=== PATIENT | male | born 1940 | race African-American/Black ===

== ENCOUNTER 2017-04-26 18:02 | Observation (INO) ==
--- NOTE | 2017-04-26 18:54 | Diag Imaging Result Doc PS360 ---
CHEST-2 VIEWS - 04/26/2017 INDICATION: diminished breath sounds/fever TECHNIQUE: COMPARISON: None FINDINGS: The lungs are normally expanded and clear. Heart size and mediastinal contours are normal. No pneumothorax or pleural effusion. IMPRESSION: Negative exam. Electronically signed by Eugenio Herbert 04/26/2017 6:52 PM
--- NOTE | 2017-04-26 18:59 | Diag Imaging Result Doc PS360 ---
HEAD W/O CONTRAST - 04/26/2017 INDICATION: brain mets, new dysphagia and RLE weakness TECHNIQUE: A CT dose reduction protocol was used. COMPARISON: Brain MRI 01/12/2017 FINDINGS: There are superior left craniectomy changes. There are some metallic densities of the skull probably localizer seeds. There is new hypodensity at the inferior left frontal lobe in an elongated, anterior-posterior configuration. This may be radiation change, as there was a small brain metastasis in this location on the prior MRI. There is also some probable radiation change at the left frontal lobe superiorly and the left parietal lobe. No free flowing hemorrhage. IMPRESSION: Probable radiation changes primarily to the left cerebral hemisphere. No mass effect or intracranial hemorrhage. Electronically signed by Eugenio Herbert 04/26/2017 6:56 PM
[2017-04-26 19:46] LABS: BASO% 0.1 % (0.0-0.8); EOS# 0.01 X1000 (0.0-0.7); EOS% 0.1 % (0.0-10.0); HEMATOCRIT 38.2 % (42.0-52.0); HEMOGLOBIN 12.7 g/dL (14.0-18.0); LYMPH# 1.21 X1000 (1.2-3.4); LYMPH% 11.5 % (20.5-51.1); MANUAL DIFF NEEDED? NO; MCH 27.2 PG (27-31); MCHC 33.2 g/dL (33-37); MCV 81.8 FL (81-99); MONO# 0.96 X1000 (0.11-0.59); MONO% 9.1 % (1.7-9.3); MPV 9.3 FL (7.4-10.4); NEUT% 79.2 % (42.2-75.2); PLT 194 X1000 (130-400); RBC 4.67 XMIL (4.7-6.1)
[2017-04-26 20:13] LABS: ALBUMIN 4.5 g/dL (3.5-5.0); CALCIUM 8.8 mg/dL (8.8-10.2); TOTAL BILIRUBIN 0.57 mg/dL (0.20-1.00); TOTAL PROTEIN 7.4 g/dL (6.3-8.3)
[2017-04-26] MEDS ORDERED: OFIRMEV 1000 MG/ISOTONIC SOLN 1,000 MG/100 ML BOTTLE IV ONE (20:15)
--- NOTE | 2017-04-26 20:37 | PROVIDER DOCUMENTATION ---
This chart was entered by Anisha Manzano Scribe, acting as scribe for Rivera Barton MD. HPI-General Adult - General Chief Complaint: Stroke-Like Symptoms Stated Complaint: WEAKNESS,BRAIN CANCER Time Seen by Provider: 04/26/17 18:32 Source: patient, family - History of Present Illness -Gen Adult Nature of Presenting Problems: Y/O M presents to ER with the complain of felling weakness this am. pt family states that pt fell in the bathroom last night and could not get up due to weakness. pt family states that this am pt called them to take him to CAT scan as he was feeling really weak and had hard time walking with his walker. pt has hx of brain cancer. Location of Pain/Injury: reports: generalized (weakness) Severity: reports: moderate Onset/Duration: reports: this morning Timing: reports: still present Associated Symptoms: reports: fever/chills, weakness (whole body more to R leg) Review of Systems - Adult - REVIEW OF SYSTEMS - ADULT Constitutional: reports: chills, fever, other (body weakness) Eyes: reports: no symptoms reported Ears, Nose, Mouth & Throat: reports: other (difficulty swallow). denies: throat pain Cardiovascular: reports: no symptoms reported Respiratory: reports: no symptoms reported Gastrointestinal: reports: no symptoms reported Genitourinary: reports: no symptoms reported Musculoskeletal: reports: joint pain, other (bilat leg weakness more to R). denies: neck pain Integumentary: reports: no symptoms reported Neurological: reports: no symptoms reported Psychiatric: reports: no symptoms reported Endocrine: reports: no symptoms reported Hematologic/Lymphatic: reports: no symptoms reported Allergic/Immunologic: reports: no symptoms reported All Other Systems: Reviewed and Negative Past History - Adult - PAST MEDICAL HISTORY-ADULT Review of Records: reports: Old Records Reviewed, Nursing Assessment Review - IMMUNIZATION STATUS Childhood Immunizations: See Nurse Assessment Flu Vaccine: See Nurse Assessment Physical Exam-General - PHYSICAL EXAM-ADULT Initial Vital Signs Reviewed: Yes - CONSTITUTIONAL General Appearance: mild distress, thin - EYES Eyes: pink conjunctivae, other (small eyes) - HEAD, EARS, NOSE, MOUTH & THROAT HENMT: normal ENT inspection, TMs normal - NECK Neck: non-tender, full range of motion, supple - RESPIRATORY Respiratory: decreased breath sounds. negative: crackles, rhonchi - CARDIOVASCULAR Cardiovascular: normal peripheral pulses, regular rate, rhythm - GASTROINTESTINAL (ABDOMEN) Abdominal Exam: normal bowel sounds, non tender - MUSCULOSKELETAL Back Exam: normal inspection, no CVA tenderness Extremity: other (weakness to whole body more to R leg). negative: swelling - SKIN Integumentary: normal color, normal turgor - NEUROLOGIC Neurologic: lime spreader II-XII nml as tested, grossly normal - PSYCHIATRIC Psych/Mental Status: normal mood/affect, normal thought content, normal thought process, oriented x 3 Progress - PLAN OF CARE/RESULTS Progress/Plan/Lab Results: Vital Signs - 8 hr 04/26/17 18:29 Temperature 102.5 F H Pulse Rate 90 Respiratory Rate 18 Blood Pressure 160/98 O2 Sat by Pulse Oximetry 94 L Result Diagrams: 04/26/17 19:24 04/26/17 19:24 - EKG 1 Time of EKG reading by physician:: 18:10 EKG Read and Signed by:: Rivera Barton EKG Interpretation (*Must complete 3 of following elements*): Abnormal Rate: 90 Rhythm: Sinus rhythm with occasional premature ventricular complexes Comments: Sinusrhythm with occasional premature ventricular complexes, otherwisenormal - XRAY 1 XRAY: Bilateral XRAY Study: Chest Impression: Normal (negative exam) XRAY Interpretation: negative exam by Radiologist - CT/MRI 1 CT Study: Head Impression: See EMR Report (probable changes in the L cerebal hemisphere, no masses or intercarnial hemorrhage noted by radiologist) CT Results: no masses or intercarnial hemorrhage noted by radiologist - CONSULTS/PCP/HOSPITALIST Notification #1 *Consult/PCP/Hospitalist*: Dr. Goldsmith Time Discussed: 20:08 Reason/Comments: discussed about Pt Consult Disposition: Admit Departure - Departure Date of Disposition Decision: 04/26/17 Time of Disposition Decision: 20:35 DIAGNOSIS: Metastatic adenocarcinoma to brain Disposition: ADMITTED INPATIENT 09 Certified Medical Emergency: Emergent Condition: Poor Referrals and Follow-Ups: Myron Armendariz MD [Primary Care Provider] - - Critical Care Note This patient required my direct & personal management of CC.: No Attestation - Physician/ HILL Attestation Patient care was provided by Advanced Practice Provider:: No The physician spent face to face time with patient:: Yes Advanced Practice Provider documentation review:: Supervising physician onsite and consulted in the evaluation and care of this patient. The physician did have a face to face encounter with the patient. This chart was documented by the indicated scribe, (Anisha Manzano Scribe) and accurately reflects the services I performed and decisions made by me, Rivera Barton MD, as attested by the provider's signature.
[2017-04-26 21:25] LABS: ALLEN TEST YES; BE 0.1 mmoll (-3.0-3.0); BLOOD TYPE ARTERIAL; DRAW SITE R RADIAL; METHB 0.9 % (0.0-1.5); MODALITY ROOM AIR; PCO2(98.6) 34 mmHg (35-45); PO2(98.6) 61 mmHg (60-100); SAMPLE BLOOD; SAO2 95.2 % (95.0-100.0); THB 12.3 g/dL (11.5-17.4); pH(98.6) 7.45 (7.35-7.45)
[2017-04-26] MEDS ORDERED: NS 1,000 ML IV ONE (21:42)
[2017-04-26 21:59] LABS: URINE MICRO REVIEW NEEDED? NO; URINE SOURCE CATH
[2017-04-26 22:04] LABS: BILIRUBIN URINE NEGATIVE (NEGATIVE); BLOOD URINE MODERATE (NEGATIVE); COLOR YELLOW; GLUCOSE URINE NEGATIVE (NEGATIVE); LEUKOCYTES URINE NEGATIVE (NEGATIVE); NITRITE URINE NEGATIVE (NEGATIVE); PH URINE 5.5; PROTEIN URINE 100 mg/dL (NEGATIVE); SP GRAVITY URINE 1.017; TURBIDITY URINE CLEAR (CLEAR); UR EPITHELIAL CELLS <10 /HPF (<10); URINE BACTERIA NEGATIVE /HPF; URINE RBC <10 /HPF (<10); URINE WBC <10 /HPF (<10); UROBILINOGEN URINE NORMAL (NORMAL)
--- NOTE | 2017-04-26 22:55 | HISTORY AND PHYSICAL ---
PRIMARY CARE PROVIDER: Myron Armendariz MD ONCOLOGIST: Med Alonso MD CHIEF COMPLAINT: Weakness and altered mental status. HISTORY OF PRESENT ILLNESS: Mr. Salazar is a 77-year-old male with a past medical history most notable for renal cell carcinoma with brain metastasis. He has undergone a right nephrectomy and brain surgery and is currently receiving radiation therapy for his brain metastasis. He is followed by Dr. Alonso and receives radiation at [facility] in [place]. He also has a history of having a seizure since his diagnosis of brain metastasis as well as COPD, hypertension and hyperlipidemia. The patient's daughter, who was at bedside reports that he lives with her sister and brother. She states that she went over there this morning and helped him get dressed to take him to an MRI appointment he had today and that he required more help than normal, and more weak and fatigued than normal. She also reports that he was more short of breath with exertion than usual. She states that he is normally alert and oriented x4, and actually did drive himself to [employer] yesterday. She stated today that he has been confused at times. The patient also stated that he has not felt well today. His daughter also reported him having some chills earlier and did have 3 episodes of loose stool earlier today, though has not had any episodes prior to today. The patient denies any chest pain, shortness of breath. He did report a recent cough, but states that this has subsided at this time. He denies any abdominal pain, though he did report 1 small episode of vomiting this afternoon. He denies any hematemesis, hematochezia or melena. He denies any dysuria or changes in his urinary frequency. Other than his reported weakness in his right leg, which is not of new onset, he denies any new reported symptoms in extremities. Upon evaluation in the ER, the patient had an initial temperature of 102.5 with a heart rate of 90, respirations 18, blood pressure 160/98, oxygen saturation 94% on room air. A CT of the head performed in the ER showed probable radiation changes primary to the left cerebral hemisphere, though no mass effect or intracranial hemorrhage. Chest x-ray was negative, thought on the patient's laboratory his CMP did show findings of likely acute kidney injury as well as some volume depletion. The patient's daughter at bedside does state that he had a MRI of the chest, abdomen and pelvis today at the imaging center on the [facility] and had his last brain MRI approximately 1-2 months ago. We have obtained a medical release form to obtain these records. At this time the patient will be admitted for further treatment evaluation of his altered mental status and fever. REVIEW OF SYSTEMS: A 12-point review of systems was conducted with the patient. All were negative except for pertinent positives mentioned in the above HPI. PAST MEDICAL HISTORY: 1. 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 2. COPD. 3. Hyperlipidemia. 4. Hypertension. 5. History of seizures since diagnosis of his brain metastasis. PAST SURGICAL HISTORY: 1. Surgery for right nephrectomy. 2. Prostate removal. 3. Brain surgery x2 for a brain metastasis. SOCIAL HISTORY: The patient is a former smoker. He denies any alcohol use or illicit drug use. He currently lives with his son and daughter. FAMILY HISTORY: Positive for diabetes mellitus. ALLERGIES: Patient has no known allergies. HOME MEDICATIONS: Ventolin HFA inhaler 1 dose inhaled p.r.n. Aspirin 81 mg p.o. daily. Biotin 10,000 mcg p.o. daily. Symbicort 160-4.5 mcg inhaler 1 dose inhaled b.i.d. Docusate calcium 240 mg p.o. p.r.n. for constipation. Ferrous sulfate 325 mg p.o. b.i.d. Hydroxyzine 50 mg p.o. t.i.d. p.r.n. for itching. Keppra 500 mg p.o. b.i.d. Lisinopril 10 mg p.o. t.i.d. Singulair 10 mg p.o. daily. Men's multivitamin with minerals 1 p.o. daily. Votrient 800 mg p.o. daily. Simvastatin 40 mg p.o. daily. Spiriva 1 dose inhaled daily. Zinc sulfate 220 mg p.o. b.i.d. DIAGNOSTIC DATA/LABORATORY RESULTS: White blood cell count 10.5, hemoglobin 12.7, hematocrit 38.2, platelet count 194,000. Sodium 131, potassium 4, chloride 92, bicarb 24, BUN 23, creatinine 2.1 with GFR of 37, glucose 100, calcium 8.8. Liver function tests within normal limits except for the AST slightly elevated at 46. Arterial blood gases were obtained on room air. PH is 7.45, pCO2 34, PO2 61, HCO3 was 24.9 with O2 saturation 95.2, lactate was 0.8. EKG showed sinus rhythm with occasional PVCs with a ventricular rate of 90 and a QTc of 433. CT of the head noncontrast showed superior left craniotomy changes. There were also some metallic densities of the skull, probably localizer seeds. There is also a new hypodensity at the inferior left frontal lobe in elongated anterior posterior configuration. This may be radiation change as there was a small brain metastasis in this location on the prior MRI. There was also some probable radiation change at the left frontal lobe superiorly and left parietal lobe, though no mass-effect or intracranial hemorrhage noted. This was per Radiology. Chest 2 views showed no acute abnormality and this is per Radiology. Pending diagnostic studies at this time are urinalysis, urine culture and blood cultures. PHYSICAL EXAMINATION: VITAL SIGNS: Temperature 100.3 degrees, heart rate 86, respirations 18, blood pressure 91/52, oxygen saturation is 94% on room air. GENERAL: Mr. Salazar is a pleasant 77-year-old male who was resting comfortably in the ER stretcher. He was in no acute distress. He was alert and oriented to person and place, though not time. He was able to answer some questions of history of present illness and past medical history, though was confused at times. HEENT: Head is atraumatic, normocephalic. Pupils are equal, round, reactive to light, were 3 mm bilaterally and brisk. Subconjunctivae were slightly pale. Oral mucosa was dry. Oropharynx was clear. NECK: Supple. Trachea midline. No carotid bruits noted upon auscultation bilaterally. No JVD noted. CARDIOVASCULAR: Patient has normal S1, S2. No murmurs, gallops, rubs appreciated. Regular rate and rhythm. PULMONARY: Patient has symmetrical chest expansion bilaterally. He did have inspiratory and expiratory wheezing noted in full lung conner. ABDOMEN: Soft, nontender, nondistended. The patient does have a slightly protuberant abdomen noted. Bowel sounds are present and all 4 quadrants were hypoactive. EXTREMITIES: No cyanosis, clubbing, or edema noted. Pulse motor and sensory were intact in all extremities. Pedal pulses were 2+ bilaterally. Capillary refill was less than 3. INTEGUMENTARY: The patient's skin color is normal for his race, is dry and intact. No lesions or sores noted. There was decreased skin turgor noted upon examination. NEUROLOGICAL: Patient is alert and oriented to person, place, not time. Cranial nerves 2-12 do appear to be grossly intact. The patient does have some weakness noted in his right leg compared to left upon examination, though his daughter states this is not of new onset and he does frequently have problems with weakness in his right lower extremity and does require assistance with walker or cane at times. ASSESSMENT AND PLAN: 1. Metabolic encephalopathy. This could be multifactorial. The patient does have a known history of brain metastasis. We will order MRI in the morning to rule out further advancement of this. The patient also does have an acute kidney injury noted. This could be uremic encephalopathy as well or could be also related to a possible infection. The patient did present with a fever. We will provide fluid resuscitation as well as we have obtained blood cultures, urine culture, and place the patient on antibiotic coverage and we will continue to monitor his neurological status closely. 2. Acute kidney injury. This could be multifactorial as well, though the patient does have fluid volume depletion noted. We will go ahead with fluid resuscitation with 1 L normal saline bolus and continue with normal saline at 125 mL/hour. We will avoid nephrotoxic medications and renally dose medications as necessary. 3. Fluid volume depletion. We will continue with treatment as mentioned for #2. 4. History of renal cell carcinoma, status post right nephrectomy with brain metastasis. He is currently followed by Dr. Alonso for this and is receiving radiation treatment for his brain metastasis. We will consult Dr. Alonso and await his evaluation and further recommendations. 5. Seizures. We will continue the patient's Keppra. 6. Chronic obstructive pulmonary disease. We will continue his regularly prescribed respiratory medications. He also will have scheduled DuoNeb treatments. 7. Hypertension. We will continue his lisinopril. 8. Hyperlipidemia. We will continue his simvastatin. He will be placed on the medical floor with telemetry. We will do vital signs q.6 hours. We will also during do neurological checks. He will be nothing per oral at this time until his neurological status improves. We will also implement seizure precautions as well as aspiration precautions. We will do strict intake and output, and we will repeat a CBC and BMP in the morning. I also discussed with the patient's daughter who was at bedside and she states she and her sister are next of kin and do make medical decisions for him, though there is no legal paperwork to make her the official power of attorney law clerk. Though upon discussing with her that she would like the patient to remain a full code. They do want cardiopulmonary resuscitation, intubation, defibrillation and cardiac medications to be given. Dictated by ROBYN Mercado for Eyal Anthony MD cc: Eyal Anthony MD [facility]
[2017-04-26] MEDS: DUONEB (A & A) INH SCH ×2 (23:16→23:55)
[2017-04-26] MEDS ORDERED: SODIUM CHLORIDE 0.9% INJ SCH (23:25)
[2017-04-26] MEDS ORDERED: DUONEB (A & A) INH PRN (23:25)
[2017-04-26] MEDS ORDERED: OFIRMEV 1000 MG/ISOTONIC SOLN 1,000 MG/100 ML BOTTLE IV PRN (23:25)
[2017-04-26] MEDS ORDERED: SURFAK PO PRN (23:25)
[2017-04-26] MEDS ORDERED: ZOFRAN IV PRN (23:25)
[2017-04-26] MEDS ORDERED: DILAUDID IV PRN (23:25)
[2017-04-27] MEDS: KEPPRA 500 MG in NS 100 ML IV SCH ×3 (00:24→23:27)
[2017-04-27] MEDS: PROTONIX IV SCH ×2 (00:24→23:28)
[2017-04-27] MEDS: ZOSYN 2.25 GM/NS 2.25 GM/50 ML IVPB IV SCH ×3 (00:25→10:45)
[2017-04-27] MEDS: LOVENOX SUBQ SCH ×2 (00:25→23:28)
[2017-04-27] MEDS: NS 1,000 ML IV SCH ×2 (00:26→09:09)
[2017-04-27] MEDS: DUONEB (A & A) INH SCH ×5 (03:34→19:30)
[2017-04-27 05:35] LABS: MANUAL DIFF NEEDED? NO
[2017-04-27 05:41] LABS: BASO% 0.1 % (0.0-0.8); HEMATOCRIT 37.1 % (42.0-52.0); HEMOGLOBIN 12.2 g/dL (14.0-18.0); IMM GRAN# 0.02 X1000 (0.0-0.04); IMM GRAN% 0.2 % (0.0-0.5); LYMPH# 1.23 X1000 (1.2-3.4); LYMPH% 11.6 % (20.5-51.1); MCH 26.9 PG (27-31); MCHC 32.9 g/dL (33-37); MCV 81.9 FL (81-99); MONO# 0.93 X1000 (0.11-0.59); MONO% 8.7 % (1.7-9.3); MPV 9.3 FL (7.4-10.4); NEUT% 79.4 % (42.2-75.2); PLT 197 X1000 (130-400); RBC 4.53 XMIL (4.7-6.1)
--- NOTE | 2017-04-27 05:41 | EKG Report ---
Test Performed on : 04/26/2017 6:10:28 PM Test Reason : No Order in [employer] Blood Pressure : / mmHG Vent. Rate : 090 BPM Atrial Rate : 090 BPM P-R Int : 180 ms QRS Dur : 092 ms QT Int : 354 ms P-R-T Axes : 063 007 071 degrees QTc Int : 433 ms Sinus rhythm. with occasional premature ventricular complexes. Otherwise normal ECG No previous ECGs available Unconfirmed Result
[2017-04-27 05:55] LABS: CALCIUM 8.8 mg/dL (8.8-10.2); POTASSIUM 3.9 mmol/L (3.5-5.1)
[2017-04-27] MEDS: SYMBICORT 160/4.5 MICROGM INHALER INH SCH ×2 (07:57→21:59)
[2017-04-27] MEDS: SPIRIVA INH SCH (07:58)
[2017-04-27] MEDS: ASPIRIN EC PO SCH (09:08)
[2017-04-27] MEDS: SINGULAIR PO SCH (09:08)
[2017-04-27] MEDS: FERROUS SULFATE PO SCH ×2 (09:08→20:34)
[2017-04-27] MEDS: PATIENT'S OWN MED PO SCH (09:10)
--- NOTE | 2017-04-27 10:39 | Diag Imaging Result Doc PS360 ---
EXAM: MRI BRAIN W/O CONTRAST HISTORY: AMS, Hx of Renal CA with brain mets. TECHNIQUE: Axial, sagittal, and coronal images obtained in multiple sequences COMPARISON: CT the brain from 04/26/2017 FINDINGS: There are at least three separate areas of abnormal signal within the left frontal and parietal lobes. These are best seen on the FLAIR and T2-weighted images. No distinct lesion identified within these areas except for superiorly in the parietal lobe where there appears to be a 1.5 cm mass with surrounding edema. No midline shift. No hydrocephalus. No epidural or subdural fluid collection. No sinus opacification. IMPRESSION: Edema within the left frontal and parietal lobes with an apparent mass superiorly in the left parietal lobe consistent with a brain metastasis. An exam with contrast would be beneficial. Electronically signed by Dominik Solo 04/27/2017 10:36 AM
--- NOTE | 2017-04-27 11:50 | PROGRESS NOTE ---
DATE: 04/27/2017 SUBJECTIVE: It looks like this patient is getting better today. His daughter is at the bedside. This patient is alert, he is oriented x3. He is moving all 4 extremities. I will ask for physical therapy evaluation today. We did an MRI of his brain that showed edema within the left frontal and parietal lobes with an apparent mass superiorly in the left parietal lobe consistent with a brain metastasis. OBJECTIVE: Vital Signs: Temperature 98.6 degrees, pulse 16, blood pressure 139/82, O2 saturation 95% on room air. HEENT: Head normocephalic. No trauma. PERRLA. Neck: Supple. No JVD. No masses. Central trachea. Chest: Clear to auscultation. No wheezing. No rales. Abdomen: Soft, nontender, nondistended. No hepatosplenomegaly. Extremities: No edema. No clubbing. No cyanosis. Neurological: The patient is alert. He is oriented x3. He has right lower extremity weakness around 3/5. LABORATORY: WBC 10.6, hemoglobin 12.2, hematocrit 37.1, platelets 197,000. Sodium 134, potassium 3.9, chloride 94, bicarbonate 25, BUN 23, creatinine 2, glucose 107. Calcium 8.8. ASSESSMENT AND PLAN: 1. Altered mental status in a patient with history of renal cell carcinoma and brain metastasis. We did an MRI that showed edema within the left frontal and parietal lobes with an apparent mass superiorly in the left parietal lobe consistent with brain metastasis and exam metastasis. As per the daughter he is close to his baseline. He is more alert and oriented x3, we will continue monitoring this patient closely. 2. Acute kidney injury. We have a creatinine done 5 months ago that was around 1.3 and today it is 2. I will continue with IV fluids. Probably this patient has acute kidney injury status due to dehydration. 3. Fluid volume depletion. We will continue with treatment as mentioned before in #2. 4. History of history of renal cell carcinoma with metastasis to the brain. Dr. Alonso has been consulted. Pending evaluation and recommendations. 5. Seizures. Continue with this patient's Keppra. 6. Chronic obstructive pulmonary disease. Continue with his home medication. No shortness of breath at this moment. 7. Hypertension. This patient has been on lisinopril and has been stopped because of his kidney injury. 8. Hyperlipidemia. Continue with his simvastatin. CRITICAL CARE TIME: 35 minutes. cc: Yusuf Helms MD
[2017-04-27] MEDS ORDERED: DECADRON IV ONE (12:44)
[2017-04-27] MEDS: TYLENOL PO PRN ×2 (14:09→20:38)
--- NOTE | 2017-04-27 14:22 | CONSULTATION ---
DATE OF CONSULTATION: 04/27/2017 REASON FOR CONSULT: Patient has known metastatic kidney carcinoma with brain metastases. 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 He is status post right nephrectomy 11/19/2016. He has been on Votrient at 800 mg a day since January 2017. He has also had brain metastases status post bead placement and as of approximately the 3rd of this month status post radiation by Dr. Ruff. The patient per his sister and the chart came in with increasing weakness and he was able to drive himself to anabaptism on Wednesday but he was complaining of feeling just very hot and overheated. He went home after anabaptism and took a bath to cool off and when he was trying to get out of the bathtub he slipped and hit his bottom. He is not complaining of any tenderness to that area. However his sister does note that he was having increasing fatigue and shortness of breath with exertion over the past several weeks, also noted what she called right leg heaviness and also dragging his right foot for the past week. He did have some diarrhea that is watery, I am unsure how many times he has gone or for how long he has had it as patient does not remember but his sister states that she checked on him on yesterday and he did not have any clean underwear as he had soiled them all. The patient's temperature in the ER was 102.5. Blood cultures are pending. He is currently on Zosyn and he has had 1 dose of IV Tylenol. He has had a CT of the brain which showed possibly some radiation changes and MRI of the brain was obtained and it shows edema within the left frontal and parietal lobes with apparent mass superiorly in the left parietal lobe 1.5 cm mass with surrounding edema however this was not compared to patient's most recent MRI of the brain which he had [facility] on 03/18/2017. A chest x-ray has also been performed and there is no acute processes. REVIEW OF SYSTEMS: Are negative unless indicated in HPI. ALLERGIES: There are no known allergies. SOCIAL/FAMILY HISTORY: Patient is a long-term smoker. He denies illicit drug or alcohol use. He has supportive family. HOME MEDICATIONS: Aspirin low dose, Symbicort, ferrous sulfate, Keppra 500 b.i.d., lisinopril, Votrient 800 mg a day, Spiriva. PHYSICAL EXAMINATION: Vital Signs: Stable. Constitutional: This is an male in no acute distress. He does appear frail, chronically ill. HEENT: Head is normocephalic, atraumatic. Pupils equal, round, symmetric. Mucous membranes appear dry. Trachea is midline. Cardiovascular: S1, S2 to auscultation without any heaves, lifts or thrills or murmurs. Pulmonary: Breath sounds clear to auscultation with normal respiratory effort. Abdomen: Soft, nondistended. Positive bowel sounds in all 4 quadrants. Musculoskeletal: Patient moves all extremities with no bony abnormality. He has equal strength bilaterally. Extremities: There is no edema noted. Skin: No petechiae, ecchymosis, or rash. Neurologic: Patient is drowsy but wakes up and follows commands and goes back to sleep. DIAGNOSTIC DATA: MRI of the brain as above. Chest x-ray, no acute process. WBC 10.63, hemoglobin 12.2, hematocrit 37.1, platelet count 197,000. Sodium is 134, potassium is 3.9, BUN 23, creatinine 2.0. ASSESSMENT AND PLAN: 1. Metastatic papillary kidney carcinoma status post right nephrectomy on full dose Votrient 800 mg a day. Further recommendations to follow. 2. Brain metastases status post bead placement and recent radiation. MRI of the brain does shows some edema in left frontal and parietal lobes with an apparent 1.5 cm mass with surrounding edema superiorly in the left parietal lobe. However this was not compared to his most recent MRI of the brain performed at [facility] and that was on 03/18/2017. We have consulted radiation oncology. Dr. Alonso has spoken with Dr. Soriano and she will have the scans compared and make further recommendations. 3. Diarrhea with resultant clinical dehydration. Will check stool studies for culture and C. difficile toxin and make further recommendations. He is currently getting IV fluid hydration. We will continue to monitor. 4. History of seizures. Patient remains on Keppra. 5. Acute on chronic kidney injury with plans as above. Baseline creatinine is 1.8-1.9. 6. Febrile illness. Checking stool studies as above. Blood cultures are pending. He is currently on Zosyn and he does not have a port. We will continue to monitor. 7. Deep vein thrombosis prophylaxis on Lovenox. Dictated by ROBYN Mohamud for Med Alonso MD cc: ROBYN Mohamud MD [facility]
--- NOTE | 2017-04-27 14:35 | CONSULTATION ---
DATE OF CONSULTATION: 04/27/2017 REQUESTING PHYSICIAN: Med Alonso MD. REASON FOR CONSULTATION: Brain metastasis. HISTORY OF PRESENT ILLNESS: Mr. Salazar is a 77-year-old gentleman, well known to our practice, with a history of renal cell carcinoma with brain metastasis. This year he had been treated with stereotactic radiosurgery first, status post resection in September 2016 and then 2 additional lesions with single fraction stereotactic radiation on 04/06/2017. The patient was doing well at the time of his stereotactic radiosurgery. According to his daughter, he did not take any Decadron after the procedure once arriving home. This weekend, he reported with confusion and weakness, as well as some lower extremity weakness as well. He was admitted to [facility]. An MRI of the brain on 04/26/2017 revealed significant edema within the left frontal and parietal lobes with an apparent mass superior in the left parietal lobe consistent with brain metastasis. My review of the scan indicates that the edema is new, but there does not seem to be much change in the parietal mass. I have been consulted for my opinion regarding his brain metastasis. PAST MEDICAL HISTORY: Renal cell carcinoma with brain metastasis. COPD, hyperlipidemia, hypertension and seizures. PAST SURGICAL HISTORY: Right nephrectomy, prostate removal. Brain surgery. SOCIAL HISTORY: The patient is a former smoker. He denies alcohol use. FAMILY HISTORY: None significant. ALLERGIES: No known drug allergies. MEDICATIONS: Per the hospital record. PHYSICAL EXAM: Vitals: Per the hospital record. General: The patient is a thin male, lying comfortably in his hospital bed in no acute distress. HEENT: Normocephalic, atraumatic. Pupils are equal, round, react to light. Extraocular movements are intact. The sclerae are anicteric. Neck: Supple with no lymphadenopathy. Heart: Regular rate and rhythm. Lungs: Clear bilaterally. Abdomen: Soft, nontender. Extremities: Reveal no clubbing, cyanosis, or edema. Neurologic Exam: Reveals the patient to be alert and oriented. Cranial nerves 2-12 are intact. There are no gross motor or sensory deficits. ASSESSMENT AND PLAN: A review of the patient's scans makes it appear that his worsening neurological condition is most likely due to treatment related edema. I have recommended starting the patient on Decadron and I have written an order for 10 mg IV now, followed by 4 mg q.6 hours. He should be sent home on Decadron 4 mg q.i.d. with outpatient follow up with Dr. Kennedy Sharp. It does not appear that his metastasis are any worse than on his prior scans, but I will be sure to review his most recent scans against his prior scans at [facility]. cc: Liset Soriano MD
[2017-04-27] MEDS ORDERED: ZOSYN 2.25 GM in NS 50 ML IV SCH (17:00)
[2017-04-27] MEDS: ZOSYN 2.25 GM in NS 50 ML IV SCH ×2 (17:00→23:27)
[2017-04-27] MEDS: DECADRON PO SCH (18:26)
[2017-04-27] MEDS: ZOCOR PO SCH (20:34)
[2017-04-28] MEDS: DECADRON PO SCH ×5 (00:48→18:03)
[2017-04-28 05:42] LABS: HEMATOCRIT 35.2 % (42.0-52.0); HEMOGLOBIN 11.8 g/dL (14.0-18.0); IMM GRAN# 0.02 X1000 (0.0-0.04); IMM GRAN% 0.2 % (0.0-0.5); LYMPH# 0.72 X1000 (1.2-3.4); LYMPH% 5.5 % (20.5-51.1); MANUAL DIFF NEEDED? NO; MCH 27.1 PG (27-31); MCHC 33.5 g/dL (33-37); MCV 80.7 FL (81-99); MONO# 0.42 X1000 (0.11-0.59); MONO% 3.2 % (1.7-9.3); MPV 9.3 FL (7.4-10.4); NEUT% 91.1 % (42.2-75.2); PLT 203 X1000 (130-400); RBC 4.36 XMIL (4.7-6.1)
[2017-04-28] MEDS: ZOSYN 2.25 GM in NS 50 ML IV SCH ×4 (05:52→22:01)
[2017-04-28] MEDS: TYLENOL PO PRN (05:53)
[2017-04-28 06:11] LABS: CALCIUM 8.5 mg/dL (8.8-10.2); POTASSIUM 4.6 mmol/L (3.5-5.1)
[2017-04-28] MEDS: DUONEB (A & A) INH SCH ×5 (07:37→22:50)
[2017-04-28] MEDS: SYMBICORT 160/4.5 MICROGM INHALER INH SCH ×2 (07:37→19:10)
[2017-04-28] MEDS: SPIRIVA INH SCH (07:37)
[2017-04-28] MEDS: SINGULAIR PO SCH (08:12)
[2017-04-28] MEDS: FERROUS SULFATE PO SCH ×2 (08:13→21:40)
[2017-04-28] MEDS: ASPIRIN EC PO SCH (08:13)
[2017-04-28] MEDS: PATIENT'S OWN MED PO SCH (08:13)
[2017-04-28] MEDS ORDERED: SAMSCA PO ONE (08:26)
[2017-04-28] MEDS ORDERED: TYLENOL PO PRN (09:50)
[2017-04-28] MEDS: KEPPRA 500 MG in NS 100 ML IV SCH ×2 (11:22→22:01)
[2017-04-28] MEDS: ZYVOX 600 MG/D5W 600 MG/300 ML IVPB IV SCH (12:08)
--- NOTE | 2017-04-28 12:08 | PROGRESS NOTE ---
DATE: 04/28/2017 SUBJECTIVE: The patient is still very sleepy as per daughter who is at bedside. Apparently he is a little bit better in comparing to how he was when he was admitted. He woke up for me today and he said that he is not hurting anywhere. He is able to identify his daughter. OBJECTIVE: Vital Signs: Temperature 101.5 degrees, heart rate 88, respiratory rate 20, blood pressure 113/63, O2 saturation 100% on room air. General examination: This is a chronically ill-looking and frail, 77-year-old male, lying in bed, in no acute distress. HEENT: Head is normocephalic, atraumatic. Anicteric sclerae and pale conjunctivae. Mucous membranes moist. Neck: Supple. No JVD noted. No carotid bruits. No lymphadenopathy. No thyromegaly. Cardiovascular: S1 and S2 heard. No murmurs, gallops, or rubs. Regular rate and rhythm. Respiratory: Clear bilaterally to auscultation. No work of breathing or using accessory muscles. Abdomen: Soft. Nontender to palpation. Bowel sounds present. No organomegaly. Neurologic: Patient is sleepy but easily arousable. Patient has right lower extremity weakness 2 to 3/5. LABORATORY DATA: White cell count 13.1, hemoglobin 11.8, hematocrit 35.2, platelets 203,000. Sodium 139, potassium 4.6, chloride 93, bicarbonate 23, BUN 28, creatinine 1.8, and glucose 143. ASSESSMENT AND PLAN: 1. Altered mental status in a patient with a history of renal cell carcinoma with brain metastases. This patient was admitted to the hospital because of altered mental status. As per daughter, he was fine 1-2 days before admission. He was able to walk over and talk normally. The MRI shows cerebral edema in the left frontal and parietal lobes. There is a mass that is also in the left parietal lobe as well that is consistent with brain metastasis. Dr. Alonso has been consulted and also Dr. Soriano from radiation oncology. Apparently there is no new on metastases as per Dr. Soriano. So at this point we will continue with dexamethasone that she recommended. Clinically he is a little bit better although he is still very sleepy. We will continue monitoring this patient closely here in the CIC unit. 2. Acute kidney injury. The creatinine has being improved a little bit. Today it is 1.8. Apparently baseline 5 months ago was 1.3. We will continue checking BMP daily. 3. Fluid volume depletion. Patient is on IV fluids. 4. Renal cell carcinoma with metastasis to the brain. Dr. Alonso is following this patient in the hospital. We will follow his recommendations. 5. Seizure disorder. We will continue with the patient's Keppra and because of his medical conditions that has been switched to Keppra IV. 6. Chronic obstructive pulmonary disease. We will continue with nebulizations. Patient does not complain of any shortness of breath at this time. 7. Hypertension. Blood pressure is good, between 110s and 160s. Lisinopril has been held because of the renal dysfunction. 8. Persistent fever. I think this could be related to the cancer. This could be a central fever. In any case, I prefer to have this patient on Tylenol q.4 hours p.r.n. fever and we are going to add antibiotics to his current treatment until the blood cultures are negative. The patient is spiking fever all day long. 9. Hyperlipidemia. We will continue with simvastatin. CRITICAL CARE TIME: 40 minutes cc: Eyal Anthony MD MTDD
[2017-04-28] MEDS: ZOCOR PO SCH (21:40)
[2017-04-28] MEDS: LOVENOX SUBQ SCH (22:02)
[2017-04-28] MEDS: PROTONIX IV SCH (22:02)
[2017-04-29] MEDS: ZYVOX 600 MG/D5W 600 MG/300 ML IVPB IV SCH ×2 (00:48→11:59)
[2017-04-29] MEDS: DECADRON PO SCH ×4 (00:48→18:37)
[2017-04-29] MEDS: DUONEB (A & A) INH SCH ×7 (02:35→23:35)
[2017-04-29 05:16] LABS: BASO% 0.1 % (0.0-0.8); HEMATOCRIT 35.9 % (42.0-52.0); HEMOGLOBIN 12.2 g/dL (14.0-18.0); IMM GRAN# 0.03 X1000 (0.0-0.04); IMM GRAN% 0.3 % (0.0-0.5); LYMPH# 0.64 X1000 (1.2-3.4); LYMPH% 5.8 % (20.5-51.1); MANUAL DIFF NEEDED? YES; MCH 27.3 PG (27-31); MCV 80.3 FL (81-99); MONO# 0.72 X1000 (0.11-0.59); MONO% 6.5 % (1.7-9.3); MPV 9.3 FL (7.4-10.4); NEUT% 87.3 % (42.2-75.2); PLT 227 X1000 (130-400); RBC 4.47 XMIL (4.7-6.1)
[2017-04-29 05:35] LABS: LYMPHS 10 % (21-51); MONO 7 % (1-9)
[2017-04-29] MEDS: ZOSYN 2.25 GM in NS 50 ML IV SCH ×5 (05:36→22:55)
[2017-04-29 05:38] LABS: CALCIUM 8.8 mg/dL (8.8-10.2); POTASSIUM 4.6 mmol/L (3.5-5.1)
[2017-04-29] MEDS: SPIRIVA INH SCH (07:46)
[2017-04-29] MEDS: SYMBICORT 160/4.5 MICROGM INHALER INH SCH ×2 (07:46→19:22)
[2017-04-29] MEDS: FERROUS SULFATE PO SCH ×2 (08:45→20:46)
[2017-04-29] MEDS: SINGULAIR PO SCH (08:45)
[2017-04-29] MEDS: ASPIRIN EC PO SCH (08:45)
[2017-04-29] MEDS: PATIENT'S OWN MED PO SCH (08:49)
--- NOTE | 2017-04-29 09:51 | PROGRESS NOTE ---
DATE: 04/29/2017 SUBJECTIVE: Patient is definitely more alert today. More awake. Daughter is at bedside. She thinks that this patient is definitely improving. OBJECTIVE: Vital Signs: Temperature 98.7 degrees, heart rate 67, respiratory rate 18, blood pressure 142/80, O2 saturation 94% on room air. General Examination: This is a chronically ill- looking and frail 77-year-old male, lying in bed, in no acute distress. HEENT: Head is normocephalic, atraumatic. Anicteric sclerae and pale conjunctivae. Mucous membranes moist. Neck: Supple. No JVD noted. No carotid bruits. No lymphadenopathy. No thyromegaly. Cardiovascular Examination: S1, S2 heard. No murmurs, gallops, or rubs. Regular rate and rhythm. Respiratory Examination: Clear bilaterally to auscultation. No work of breathing or using accessory muscles. Abdomen: Soft, nontender to palpation. Bowel sounds present. No organomegaly. Neurological Examination: Patient is more awake. Knows his name and knows that he is in the hospital. The patient has a right lower extremity weakness, 3/5 motor strength. Still bilateral hand tremors. LABORATORY DATA: White cell count 11.02, hemoglobin 12.2, hematocrit 35.9, platelets 227,000. BMP unremarkable, except creatinine 2.1. ASSESSMENT AND PLAN: 1. Altered mental status in a patient with history of renal cell carcinoma with brain metastasis. The patient was admitted because of that condition and he now from yesterday to today there was a good improvement. MRI of the brain did shows cerebral edema. Patient evaluated by Dr. Soriano from radiation oncology and she recommends Decadron only. Patient is doing fine. Patient was spiking fever from the time of admission until yesterday, where we current treatment. The blood cultures are so far negative. Will wait until final result of blood cultures to stop antibiotics, because at this point I do not know if this is the Decadron that is helping him and recover in his mental status or is an infection going on that is recovering. In any case, we will continue with both medications. 2. Acute kidney injury. The patient is at his baseline. The creatinine is at his baseline. 3. Renal cell carcinoma with metastases to brain. Dr. Alonso following this patient. 4. Seizure disorder. We will continue with Keppra. Patient has not had any seizure while he is here in the hospital. 5. Chronic obstructive pulmonary disease. We will continue with breathing treatments as needed for shortness of breath. 6. Hypertension. Blood pressure is 140/80 and it has been the same numbers during the last 24 hours. We will continue with the same management. 7. Persistent fever. As we mentioned before, that could central fever related to the brain metastasis or an infection. In any case, patient is on Tylenol q.4 hours p.r.n. and patient is on Zosyn and Zyvox was added yesterday to his current treatment. We will continue with above medications until blood cultures returned negative. 8. He does not have any fever in the last 24 hours. 9. Hyperlipidemia. We will continue with simvastatin. CRITICAL CARE TIME: Was 45 minutes. cc: Eyal Anthony MD
[2017-04-29] MEDS: KEPPRA 500 MG in NS 100 ML IV SCH ×2 (11:11→22:20)
[2017-04-29] MEDS: ZOCOR PO SCH (20:46)
[2017-04-29] MEDS: PROTONIX IV SCH (22:20)
[2017-04-29] MEDS: LOVENOX SUBQ SCH (22:24)
[2017-04-30] MEDS: DECADRON PO SCH ×3 (00:40→11:59)
[2017-04-30] MEDS: ZYVOX 600 MG/D5W 600 MG/300 ML IVPB IV SCH ×2 (00:40→11:54)
[2017-04-30] MEDS: DUONEB (A & A) INH SCH ×3 (03:22→10:43)
[2017-04-30 06:08] LABS: CALCIUM 8.2 mg/dL (8.8-10.2); POTASSIUM 4.6 mmol/L (3.5-5.1)
[2017-04-30 06:09] LABS: BASO% 0.1 % (0.0-0.8); HEMOGLOBIN 11.7 g/dL (14.0-18.0); IMM GRAN# 0.08 X1000 (0.0-0.04); IMM GRAN% 0.9 % (0.0-0.5); LYMPH# 0.71 X1000 (1.2-3.4); LYMPH% 7.7 % (20.5-51.1); MANUAL DIFF NEEDED? YES; MCH 27.1 PG (27-31); MCHC 33.4 g/dL (33-37); MONO# 0.66 X1000 (0.11-0.59); MONO% 7.2 % (1.7-9.3); MPV 9.5 FL (7.4-10.4); NEUT% 84.1 % (42.2-75.2); PLT 238 X1000 (130-400); RBC 4.32 XMIL (4.7-6.1)
[2017-04-30 07:25] LABS: BANDS 2 % (0-1); LYMPHS 11 % (21-51); MONO 1 % (1-9)
[2017-04-30] MEDS: SPIRIVA INH SCH (07:36)
[2017-04-30] MEDS: SYMBICORT 160/4.5 MICROGM INHALER INH SCH (07:36)
[2017-04-30] MEDS ORDERED: SAMSCA PO ONE (08:06)
[2017-04-30] MEDS: FERROUS SULFATE PO SCH (08:12)
[2017-04-30] MEDS: ASPIRIN EC PO SCH (08:12)
[2017-04-30] MEDS: SINGULAIR PO SCH (08:12)
[2017-04-30] MEDS: PATIENT'S OWN MED PO SCH (08:13)
--- NOTE | 2017-04-30 10:05 | PROGRESS NOTE ---
DATE: 04/30/2017 SUBJECTIVE: Patient is a little more alert today. More awake. As per daughter who is at bedside, he is doing fine. OBJECTIVE: Vital Signs: Temperature 98.3 degrees, heart rate 72, respiratory rate 18, blood pressure 132/80, O2 saturation 95% on 2 L nasal cannula. General Examination: This is a chronically ill-looking and frail 77-year-old male, lying in bed, in no acute distress. HEENT: Head is normocephalic, atraumatic. Anicteric sclerae and pale conjunctivae. Mucous membranes moist. Neck: Supple. No JVD noted. No carotid bruits. No lymphadenopathy. Cardiovascular: S1, S2 heard. No murmurs, gallops, or rubs. Regular rate and rhythm. Respiratory: Clear bilaterally to auscultation. No work of breathing or using accessory muscles. Abdomen: Soft, nontender to palpation. Bowel sounds present. No organomegaly. Extremities: No clubbing, cyanosis, or edema. Peripheral pulses present in both legs. Neurological: The patient is awake, knows his name. Knows he is in the hospital. Moves 4 extremities spontaneously. Patient has a right lower extremity weakness 3/5 motor strength. Still bilateral hand tremors noted. LABORATORY DATA: White cell count 9.33, hemoglobin 11.7, hematocrit 35.0, platelets 238,000. BMP remarkable for creatinine 2.0, BUN 32, and sodium 133. ASSESSMENT/PLAN: 1. Altered mental status on a patient with a history of renal cell carcinoma with brain metastasis. The patient is doing fine. MRI did not show any more metastases and recommendations from Radiation-Oncology is Decadron, which this patient is taking and is responding to the therapy. For possible suspicion of central nervous system infection, patient was started on Zyvox and Zosyn. At this time, I am planning to continue with Decadron as per Dr. Soriano's recommendation. I will continue with antibiotics until we see blood cultures negative. Physical Therapy be consulted to see this patient. 2. Acute kidney injury. Creatinine is at his baseline. 3. Renal cell carcinoma with metastases to the brain. Dr. Alonso is following this patient. He is not going to get any active treatment for this condition here in the hospital right now. 4. Seizure disorder. We will continue with Keppra. No seizures reported while he is in the hospital. 5. Chronic obstructive pulmonary disease. We will continue with breathing treatment as needed for shortness of breath. 6. Hypertension. Blood pressure is well controlled. We will continue with the same management. 7. Persistent fever. That condition has resolved. 8. Hyperlipidemia. We will continue with simvastatin. cc: Eyla Anthony MD
[2017-04-30 11:51] VITALS: BP 140/78
[2017-04-30] MEDS: KEPPRA 500 MG in NS 100 ML IV SCH (11:54)
[2017-04-30] MEDS: ZOSYN 2.25 GM in NS 50 ML IV SCH (11:54)
--- NOTE | 2017-04-30 15:24 | DISCHARGE SUMMARY ---
ADMISSION DATE: 04/26/2017 DISCHARGE DATE: 04/30/2017 DISCHARGE DIAGNOSES: 1. Altered mental status, patient with a history of renal cell carcinoma with brain metastases improved. 2. Acute kidney injury. Creatinine at baseline. 3. Renal cell carcinoma with metastasis to the brain. Aware. 4. Seizure disorder. 5. Chronic obstructive pulmonary disease. 6. Hypertension. 7. Hyperlipidemia. PROCEDURES: 1. Brain MRI showed edema within the left frontal and parietal lobe with an apparent mass superiorly in the left parietal lobe consistent with a brain metastases. 2. Chest x-ray showed negative, no acute disease. 3. Head CT showed probable radiation changes primarily to the left cerebral hemisphere but no mass effect or intracranial hemorrhage. CONSULTATIONS: 1. Dr. Alonso from Hematology/Oncology. 2. Dr. Soriano from Radiation Oncology. HOSPITAL COURSE: This is a 77-year-old male with past medical history of renal cell carcinoma with brain metastases who has undergone a right nephrectomy and brain surgery and he is currently receiving radiation therapy for those brain metastasis. Patient is being followed by Dr. Alonso and received radiation at [facility] in [place]. Patient also had a history of having seizures since diagnosis of brain metastasis. The patient's daughter who is at bedside reports that he lives with sister and brother and on the day of admission they went to see him because he was supposed to have an MRI that day and she noticed that he was confused and more short of breath. The patient was brought to the emergency department. The patient had a initial temperature of 102.5 degrees, heart rate of 90. The CT of the head did not show anything acute. He was admitted for further evaluation and treatment. Lab dunaway, those show acute on chronic kidney disease. Patient started on IV antibiotics for suspicious for infection. Also we consulted Dr. Soriano for possibly continuation of this therapy here. The MRI of the brain did not show any new mets and as per Dr. Soriano this patient was started on Decadron 4 mg q.6 hours. Also as we mentioned before, because of fever we started broad-spectrum antibiotics and we ordered blood cultures. Patient has been on Decadron and also on antibiotics until today. His mental status is definitely much better. He is more awake, alert. He has on the physical exam some hand tremors. He stopped spiking fever for last 2 days. Blood cultures from 4 days ago did not show any growth so at this point, I think this patient's antibiotics can be stopped. He needs to continue with Decadron as per Dr. Soriano's recommendations. The patient is going to a rehab facility. After that, he is supposed to see Dr. Alonso in the office. For acute kidney injury he was started on IV fluids and his creatinine went back to normal. The patient has not had any seizure while he was in the hospital. He was on Keppra. He will continue with Keppra. For COPD he was continue with usual neb treatments. For hypertension that was well controlled. We have made the change from lisinopril to 10 three times per day to 20 mg p.o. b.i.d. He was responding to the therapy as well. The patient is going to be discharged in stable condition to rehab facility. DISCHARGE PHYSICAL EXAMINATION: Vitals: Temperature 98.5 degrees, heart rate 63, respiratory rate 18, blood pressure 140/78. O2 saturation 94% on room air. General examination: This is a chronically ill-looking and frail 77-year-old male, lying in bed, in no acute distress. HEENT: Head is normocephalic, atraumatic. Anicteric sclerae and pale conjunctivae. Mucous membranes moist. Neck: Supple. No JVD noted. No carotid bruits. No lymphadenopathy. No thyromegaly. Cardiovascular: S1, S2 heard. No murmurs, gallops, or rubs. Regular rate and rhythm. Respiratory: Clear bilaterally to auscultation. No work of breathing or using accessory muscles. Abdomen: Soft, nontender to palpation. Bowel sounds present. No organomegaly. Extremities: No clubbing, cyanosis, or edema. Peripheral pulses present in both legs. Neurologic exam: Patient has weakness, 3/5 in the right leg compared with the left. Patient is definitely more alert and awake in comparing with admission. DISCHARGE DISPOSITION: The patient is going to a rehab facility. LIST OF MEDICATIONS: 1. Decadron as directed. 2. Symbicort 160/4.5, 1 inhalation twice daily. 3. Keppra 500 mg 1 tablet p.o. b.i.d. 4. Multivitamin 1 tablet p.o. daily. 5. Aspirin 81 mg 1 tablet p.o. daily. 6. Ferrous sulfate 325 mg 1 tablet p.o. daily. 7. Montelukast 10 mg 1 tablet p.o. daily. 8. Simvastatin 40 mg 1 tablet p.o. daily. 9. Docusate 240 mg 1 tablet p.o. daily. 10. Spiriva 1 inhalation daily. 11. Pazopanib 800 mg p.o. daily. 12. Hydroxyzine 50 mg 1 tablet p.o. 2 times per day as needed for itching. 13. Ventolin 2 inhalations p.o. q.4 hours p.r.n. for shortness of breath. 14. Lisinopril 20 mg p.o. b.i.d. Follow up with Dr. Alonso when he is discharged from rehab facility. DISCHARGE TIME: 38 minutes cc: Eyal Anthony MD MTDD
== END 2017-04-30 16:30 ==
LOC: ED 18:02 → SUATTDRO 23:04 → INTOOBSV 23:04 → 3S 23:04
PROVIDERS: ATTEND Internal Medicine

== ENCOUNTER 2017-05-10 17:16 | Inpatient (IN) ==
[2017-05-10] MEDS ORDERED: NS 1,000 ML IV ONE ×2 (19:19→21:48)
[2017-05-10] MEDS ORDERED: NS 1,000 ML ONE (19:53)
[2017-05-10 19:56] LABS: BASO% 0.1 % (0.0-0.8); EOS# 0.02 X1000 (0.0-0.7); EOS% 0.1 % (0.0-10.0); HEMOGLOBIN 13.9 g/dL (14.0-18.0); IMM GRAN# 0.04 X1000 (0.0-0.04); IMM GRAN% 0.3 % (0.0-0.5); LYMPH% 5.5 % (20.5-51.1); MANUAL DIFF NEEDED? NO; MCH 27.6 PG (27-31); MCHC 33.1 g/dL (33-37); MCV 83.5 FL (81-99); MONO# 0.81 X1000 (0.11-0.59); MONO% 5.5 % (1.7-9.3); MPV 9.4 FL (7.4-10.4); NEUT% 88.5 % (42.2-75.2); PLT 282 X1000 (130-400); RBC 5.03 XMIL (4.7-6.1)
[2017-05-10 20:09] LABS: ALBUMIN 3.5 g/dL (3.5-5.0); CALCIUM 8.3 mg/dL (8.8-10.2); POTASSIUM 4.7 mmol/L (3.5-5.1); TOTAL BILIRUBIN 0.85 mg/dL (0.20-1.00); TOTAL PROTEIN 6.4 g/dL (6.3-8.3)
[2017-05-10] MEDS ORDERED: NS 1,000 ML IV SCH (20:55)
[2017-05-10 21:24] LABS: URINE CULTURE NEEDED? NO; URINE MICRO REVIEW NEEDED? NO; URINE SOURCE CATH
[2017-05-10 21:31] LABS: BILIRUBIN URINE NEGATIVE (NEGATIVE); BLOOD URINE NEGATIVE (NEGATIVE); COLOR YELLOW; GLUCOSE URINE NEGATIVE (NEGATIVE); LEUKOCYTES URINE NEGATIVE (NEGATIVE); NITRITE URINE NEGATIVE (NEGATIVE); PROTEIN URINE TRACE mg/dL (NEGATIVE); SP GRAVITY URINE 1.015; TURBIDITY URINE CLEAR (CLEAR); UROBILINOGEN URINE NORMAL (NORMAL)
[2017-05-10 21:33] LABS: UR EPITHELIAL CELLS <10 /HPF (<10); URINE BACTERIA NEGATIVE /HPF; URINE RBC <10 /HPF (<10); URINE WBC <10 /HPF (<10)
[2017-05-10] MEDS ORDERED: VANCOMYCIN 1 GM/NS 1 GM/250 ML IVPB IV ONE (21:50)
[2017-05-10] MEDS ORDERED: ZOSYN 3.375 GM in NS 50 ML IV ONE (21:50)
[2017-05-10] MEDS ORDERED: VANCOMYCIN 1 GM/NS 1 GM/250 ML IVPB ONE (22:21)
[2017-05-11] MEDS ORDERED: ZOFRAN IV PRN (00:16)
[2017-05-11] MEDS ORDERED: TYLENOL PO PRN (00:16)
[2017-05-11] MEDS ORDERED: NS 1,000 ML IV SCH (00:16)
[2017-05-11] MEDS ORDERED: NS 1,000 ML IV ONE (00:28)
[2017-05-11] MEDS ORDERED: VANCOMYCIN IV PER PHARMACY MISC SCH (02:29)
[2017-05-11] MEDS ORDERED: DECADRON PO SCH (02:29)
[2017-05-11] MEDS ORDERED: SURFAK PO PRN (02:29)
[2017-05-11] MEDS: DUONEB (A & A) INH PRN ×3 (02:50→19:09)
[2017-05-11] MEDS ORDERED: VANCOMYCIN 500 MG in NS 100 ML IV ONE (04:00)
[2017-05-11] MEDS: ZOSYN 2.25 GM in NS 50 ML IV SCH ×3 (05:50→17:46)
[2017-05-11] MEDS: PULMICORT INH SCH ×2 (07:41→19:09)
[2017-05-11] MEDS: ASPIRIN EC PO SCH (08:25)
[2017-05-11] MEDS: KEPPRA PO SCH ×2 (08:25→20:44)
[2017-05-11] MEDS: FERROUS SULFATE PO SCH ×2 (08:25→20:44)
[2017-05-11] MEDS: SINGULAIR PO SCH (08:25)
[2017-05-11] MEDS: THERA M PLUS PO SCH (08:25)
[2017-05-11] MEDS: PATIENT'S OWN MED PO SCH (08:55)
[2017-05-11] MEDS ORDERED: HEPARIN SUBQ SCH (09:00)
[2017-05-11] MEDS ORDERED: CALMOSEPTINE OINTMENT TOP PRN (14:17)
[2017-05-11] MEDS: BROVANA NEB INH SCH ×2 (19:09)
[2017-05-11] MEDS: FLAGYL PO SCH (20:44)
[2017-05-11] MEDS: ZOCOR PO SCH (20:44)
[2017-05-11] MEDS: QUESTRAN PO SCH (20:44)
[2017-05-12] MEDS: ZOSYN 2.25 GM in NS 50 ML IV SCH ×4 (01:40→18:00)
[2017-05-12] MEDS: MORPHINE IV PRN ×4 (04:26→21:30)
[2017-05-12 06:21] LABS: MANUAL DIFF NEEDED? NO
[2017-05-12 06:32] LABS: EOS# 0.02 X1000 (0.0-0.7); EOS% 0.2 % (0.0-10.0); HEMATOCRIT 41.9 % (42.0-52.0); HEMOGLOBIN 13.9 g/dL (14.0-18.0); IMM GRAN# 0.05 X1000 (0.0-0.04); IMM GRAN% 0.4 % (0.0-0.5); MCH 27.8 PG (27-31); MCHC 33.2 g/dL (33-37); MCV 83.8 FL (81-99); MONO# 1.41 X1000 (0.11-0.59); MONO% 11.2 % (1.7-9.3); MPV 9.6 FL (7.4-10.4); NEUT% 84.2 % (42.2-75.2); PLT 215 X1000 (130-400)
[2017-05-12 07:01] LABS: CALCIUM 8.4 mg/dL (8.8-10.2); POTASSIUM 5.3 mmol/L (3.5-5.1)
[2017-05-12] MEDS: QUESTRAN PO SCH ×2 (08:39→21:28)
[2017-05-12] MEDS: KEPPRA PO SCH ×2 (08:39→21:28)
[2017-05-12] MEDS: FERROUS SULFATE PO SCH ×2 (08:39→21:28)
[2017-05-12] MEDS: ASPIRIN EC PO SCH (08:39)
[2017-05-12] MEDS: CULTURELLE PO SCH (08:39)
[2017-05-12] MEDS: THERA M PLUS PO SCH (08:39)
[2017-05-12] MEDS: SINGULAIR PO SCH (08:40)
[2017-05-12] MEDS: FLAGYL PO SCH ×3 (08:40→17:38)
[2017-05-12] MEDS ORDERED: PULMICORT ONE (08:46)
[2017-05-12] MEDS ORDERED: BROVANA NEB ONE (08:46)
[2017-05-12] MEDS: BROVANA NEB INH SCH ×2 (08:55→19:46)
[2017-05-12] MEDS: PULMICORT INH SCH ×2 (08:55→19:46)
[2017-05-12] MEDS ORDERED: PNEUMOVAX 23 IM ONE (09:00)
[2017-05-12] MEDS: ZOFRAN IV PRN ×2 (12:01→17:01)
[2017-05-12] MEDS: PATIENT'S OWN MED PO SCH (13:59)
[2017-05-12] MEDS: ZOCOR PO SCH (21:28)
[2017-05-12] MEDS: FLAGYL 500 MG/NS 500 MG/100 ML IVPB IV SCH (22:57)
[2017-05-13] MEDS: ZOSYN 2.25 GM in NS 50 ML IV SCH ×4 (00:47→21:07)
[2017-05-13] MEDS ORDERED: VANCOMYCIN 1,150 MG in NS 250 ML IV SCH (04:00)
[2017-05-13] MEDS: FLAGYL 500 MG/NS 500 MG/100 ML IVPB IV SCH ×4 (06:48→21:35)
[2017-05-13] MEDS ORDERED: BROVANA NEB ONE ×2 (07:35)
[2017-05-13] MEDS: BROVANA NEB INH SCH ×2 (07:50→20:12)
[2017-05-13] MEDS: DUONEB (A & A) INH PRN ×3 (07:50→20:13)
[2017-05-13] MEDS: PULMICORT INH SCH ×2 (07:51→20:13)
[2017-05-13] MEDS: QUESTRAN PO SCH ×2 (08:40→21:06)
[2017-05-13] MEDS: THERA M PLUS PO SCH (08:41)
[2017-05-13] MEDS: FERROUS SULFATE PO SCH ×2 (08:41→21:06)
[2017-05-13] MEDS: CULTURELLE PO SCH (08:41)
[2017-05-13] MEDS: SINGULAIR PO SCH (08:41)
[2017-05-13] MEDS: KEPPRA PO SCH ×2 (08:41→21:06)
[2017-05-13] MEDS: ASPIRIN EC PO SCH (08:41)
[2017-05-13] MEDS: PATIENT'S OWN MED PO SCH (10:06)
--- NOTE | 2017-05-13 13:35 | Diag Imaging Result Doc PS360 ---
EXAM: CHEST-PORTABLE - 05/13/2017 HISTORY: metastatic renal cancer TECHNIQUE: Portable chest 1145 COMPARISON: 05/10/2017 FINDINGS: Heart size is normal. There is stable tortuosity of the thoracic aorta. The lungs appear clear. There is no pleural effusion or pneumothorax identified. IMPRESSION: No evidence of acute disease. Electronically signed by Myron Carpenter 05/13/2017 1:33 PM
[2017-05-13] MEDS: ULTRAM PO PRN (17:41)
[2017-05-13] MEDS: ZOCOR PO SCH (21:06)
[2017-05-14] MEDS: MORPHINE IV PRN (01:26)
[2017-05-14] MEDS: ZOSYN 2.25 GM in NS 50 ML IV SCH ×3 (02:22→14:47)
[2017-05-14] MEDS: FLAGYL 500 MG/NS 500 MG/100 ML IVPB IV SCH ×4 (02:24→21:45)
[2017-05-14] MEDS ORDERED: VANCOMYCIN 1,150 MG in NS 250 ML IV SCH (04:00)
[2017-05-14 06:04] LABS: MANUAL DIFF NEEDED? NO
[2017-05-14 06:34] LABS: BASO% 0.1 % (0.0-0.8); EOS# 0.18 X1000 (0.0-0.7); EOS% 1.2 % (0.0-10.0); HEMATOCRIT 34.6 % (42.0-52.0); HEMOGLOBIN 11.5 g/dL (14.0-18.0); IMM GRAN# 0.06 X1000 (0.0-0.04); IMM GRAN% 0.4 % (0.0-0.5); LYMPH# 1.01 X1000 (1.2-3.4); LYMPH% 6.6 % (20.5-51.1); MCH 27.7 PG (27-31); MCHC 33.2 g/dL (33-37); MCV 83.4 FL (81-99); MONO# 1.55 X1000 (0.11-0.59); MONO% 10.1 % (1.7-9.3); NEUT% 81.6 % (42.2-75.2); PLT 197 X1000 (130-400); RBC 4.15 XMIL (4.7-6.1)
[2017-05-14 06:36] LABS: CALCIUM 8.5 mg/dL (8.8-10.2); MAGNESIUM 2.4 mg/dL (1.5-2.7); POTASSIUM 4.6 mmol/L (3.5-5.1)
[2017-05-14 06:55] LABS: FREE T4 1.14 ng/dL (0.93-1.70)
[2017-05-14] MEDS: DUONEB (A & A) INH PRN ×2 (08:02→19:55)
[2017-05-14] MEDS: BROVANA NEB INH SCH ×2 (08:02→19:55)
[2017-05-14] MEDS ORDERED: BROVANA NEB ONE ×2 (08:02)
[2017-05-14] MEDS: QUESTRAN PO SCH ×2 (08:53→21:44)
[2017-05-14] MEDS: SINGULAIR PO SCH (08:53)
[2017-05-14] MEDS: FERROUS SULFATE PO SCH ×2 (08:53→21:42)
[2017-05-14] MEDS: ASPIRIN EC PO SCH (08:53)
[2017-05-14] MEDS: THERA M PLUS PO SCH (08:54)
[2017-05-14] MEDS: CULTURELLE PO SCH (08:54)
[2017-05-14] MEDS: KEPPRA PO SCH ×2 (08:54→21:42)
[2017-05-14] MEDS: PATIENT'S OWN MED PO SCH (09:51)
--- NOTE | 2017-05-14 11:09 | Diag Imaging Result Doc PS360 ---
EXAM: CHEST-1 VIEW HISTORY: sepsis TECHNIQUE: AP portable upright at 2134 COMMENT: The heart size and primary vascularity are within normal limits. There are no focal pulmonary abnormalities. No previous studies are available for comparison. IMPRESSION: No acute disease. Electronically signed by Roel French 05/14/2017 11:07 AM
[2017-05-14] MEDS: NS 1,000 ML IV SCH (16:25)
[2017-05-14] MEDS: PULMICORT INH SCH (19:55)
[2017-05-14] MEDS: ZOCOR PO SCH (21:42)
[2017-05-15] MEDS: NS 1,000 ML IV SCH ×2 (04:19→16:15)
[2017-05-15] MEDS: FLAGYL 500 MG/NS 500 MG/100 ML IVPB IV SCH ×3 (04:19→20:54)
[2017-05-15] MEDS ORDERED: BROVANA NEB ONE (07:20)
[2017-05-15] MEDS: PATIENT'S OWN MED PO SCH (08:48)
[2017-05-15] MEDS: CULTURELLE PO SCH (08:50)
[2017-05-15] MEDS: ASPIRIN EC PO SCH (08:50)
[2017-05-15] MEDS: KEPPRA PO SCH ×2 (08:50→20:55)
[2017-05-15] MEDS: FERROUS SULFATE PO SCH ×2 (08:50→20:55)
[2017-05-15] MEDS: SINGULAIR PO SCH (08:50)
[2017-05-15] MEDS: QUESTRAN PO SCH ×2 (08:50→20:55)
[2017-05-15] MEDS: THERA M PLUS PO SCH (08:50)
[2017-05-15] MEDS: PULMICORT INH SCH ×3 (09:00→19:15)
[2017-05-15] MEDS: BROVANA NEB INH SCH ×2 (09:17→19:15)
[2017-05-15] MEDS: ZOCOR PO SCH (20:55)
[2017-05-16] MEDS: MORPHINE IV PRN ×2 (03:17→23:42)
[2017-05-16] MEDS: FLAGYL 500 MG/NS 500 MG/100 ML IVPB IV SCH ×4 (03:18→20:46)
[2017-05-16] MEDS: NS 1,000 ML IV SCH ×2 (06:29→14:27)
[2017-05-16] MEDS: PULMICORT INH SCH ×2 (07:31→19:25)
[2017-05-16] MEDS: BROVANA NEB INH SCH ×2 (07:32→19:25)
[2017-05-16] MEDS: THERA M PLUS PO SCH (08:49)
[2017-05-16] MEDS: ASPIRIN EC PO SCH (08:49)
[2017-05-16] MEDS: QUESTRAN PO SCH ×2 (08:49→20:46)
[2017-05-16] MEDS: SINGULAIR PO SCH (08:49)
[2017-05-16] MEDS: FERROUS SULFATE PO SCH ×2 (08:49→20:46)
[2017-05-16] MEDS: KEPPRA PO SCH ×2 (08:49→20:46)
[2017-05-16] MEDS: CULTURELLE PO SCH (08:49)
[2017-05-16] MEDS: PATIENT'S OWN MED PO SCH (09:52)
[2017-05-16] MEDS: ZOCOR PO SCH (20:46)
[2017-05-17] MEDS: NS 1,000 ML IV SCH ×2 (05:05→16:11)
[2017-05-17] MEDS: FLAGYL 500 MG/NS 500 MG/100 ML IVPB IV SCH ×3 (05:06→21:19)
[2017-05-17] MEDS: BROVANA NEB INH SCH ×2 (08:12→19:50)
[2017-05-17] MEDS: PULMICORT INH SCH ×2 (08:13→19:50)
[2017-05-17] MEDS: KEPPRA PO SCH ×2 (09:41→21:19)
[2017-05-17] MEDS: THERA M PLUS PO SCH (09:41)
[2017-05-17] MEDS: ASPIRIN EC PO SCH (09:41)
[2017-05-17] MEDS: SINGULAIR PO SCH (09:41)
[2017-05-17] MEDS: FERROUS SULFATE PO SCH ×2 (09:41→21:19)
[2017-05-17] MEDS: CULTURELLE PO SCH (09:41)
[2017-05-17] MEDS: PATIENT'S OWN MED PO SCH (09:42)
[2017-05-17] MEDS: QUESTRAN PO SCH ×2 (09:42→21:20)
[2017-05-17] MEDS: ZOCOR PO SCH (21:19)
[2017-05-18] MEDS: NS 1,000 ML IV SCH ×3 (03:46→19:41)
[2017-05-18] MEDS: FLAGYL 500 MG/NS 500 MG/100 ML IVPB IV SCH ×3 (05:30→22:43)
[2017-05-18 06:20] LABS: BASO% 0.2 % (0.0-0.8); EOS# 0.12 X1000 (0.0-0.7); EOS% 2.6 % (0.0-10.0); HEMATOCRIT 30.5 % (42.0-52.0); HEMOGLOBIN 10.2 g/dL (14.0-18.0); IMM GRAN# 0.02 X1000 (0.0-0.04); IMM GRAN% 0.4 % (0.0-0.5); LYMPH# 0.81 X1000 (1.2-3.4); LYMPH% 17.3 % (20.5-51.1); MANUAL DIFF NEEDED? YES; MCH 27.8 PG (27-31); MCHC 33.4 g/dL (33-37); MCV 83.1 FL (81-99); MONO# 0.46 X1000 (0.11-0.59); MONO% 9.8 % (1.7-9.3); MPV 9.4 FL (7.4-10.4); NEUT% 69.7 % (42.2-75.2); PLT 177 X1000 (130-400); RBC 3.67 XMIL (4.7-6.1)
[2017-05-18 06:25] LABS: AGAP 11; BUN 11 mg/dL (8-22); CALCIUM 7.9 mg/dL (8.8-10.2); CHLORIDE 105 mmol/L (98-107); COSMO 274; MAGNESIUM 1.4 mg/dL (1.5-2.7); POTASSIUM 3.2 mmol/L (3.5-5.1); SODIUM 138 mmol/L (136-145); TCO2 22 mmol/L (25-35)
[2017-05-18 06:52] LABS: BANDS 2 % (0-1); LYMPHS 8 % (21-51); MONO 10 % (1-9)
[2017-05-18] MEDS ORDERED: BROVANA NEB ONE ×2 (07:09)
[2017-05-18] MEDS: PULMICORT INH SCH ×2 (07:23→19:00)
[2017-05-18] MEDS: BROVANA NEB INH SCH ×2 (07:23→19:00)
[2017-05-18] MEDS: DUONEB (A & A) INH PRN ×2 (07:23→19:01)
[2017-05-18] MEDS ORDERED: KLOR-CON POWDER PACKET PO ONE (07:49)
[2017-05-18] MEDS ORDERED: MAGNESIUM SULFATE 2 GM/S.W.I. 2 GM/50 ML IVPB IV ONE (07:50)
[2017-05-18] MEDS: FERROUS SULFATE PO SCH ×2 (10:21→22:42)
[2017-05-18] MEDS: ASPIRIN EC PO SCH (10:21)
[2017-05-18] MEDS: QUESTRAN PO SCH ×2 (10:21→22:47)
[2017-05-18] MEDS: CULTURELLE PO SCH (10:21)
[2017-05-18] MEDS: THERA M PLUS PO SCH (10:22)
[2017-05-18] MEDS: SINGULAIR PO SCH (10:22)
[2017-05-18] MEDS: KEPPRA PO SCH ×2 (10:22→22:43)
[2017-05-18] MEDS: PATIENT'S OWN MED PO SCH (12:50)
[2017-05-18] MEDS: ZOCOR PO SCH (22:42)
[2017-05-19] MEDS: ULTRAM PO PRN (02:32)
[2017-05-19] MEDS: FLAGYL 500 MG/NS 500 MG/100 ML IVPB IV SCH ×2 (05:09→15:53)
[2017-05-19 06:33] LABS: MANUAL DIFF NEEDED? NO
[2017-05-19 06:37] LABS: BASO% 0.2 % (0.0-0.8); EOS# 0.14 X1000 (0.0-0.7); EOS% 3.4 % (0.0-10.0); HEMATOCRIT 28.9 % (42.0-52.0); HEMOGLOBIN 9.8 g/dL (14.0-18.0); IMM GRAN# 0.02 X1000 (0.0-0.04); IMM GRAN% 0.5 % (0.0-0.5); LYMPH# 0.78 X1000 (1.2-3.4); LYMPH% 18.9 % (20.5-51.1); MCH 28.2 PG (27-31); MCHC 33.9 g/dL (33-37); MONO# 0.37 X1000 (0.11-0.59); MPV 8.8 FL (7.4-10.4); PLT 174 X1000 (130-400); RBC 3.48 XMIL (4.7-6.1)
[2017-05-19 06:56] LABS: AGAP 13; BUN 8 mg/dL (8-22); CALCIUM 7.5 mg/dL (8.8-10.2); CHLORIDE 104 mmol/L (98-107); COSMO 271; POTASSIUM 3.1 mmol/L (3.5-5.1); SODIUM 137 mmol/L (136-145); TCO2 20 mmol/L (25-35)
[2017-05-19] MEDS: DUONEB (A & A) INH PRN ×2 (07:36→19:35)
[2017-05-19] MEDS: PULMICORT INH SCH ×2 (07:36→19:35)
[2017-05-19] MEDS ORDERED: KLOR-CON PO ONE (07:40)
[2017-05-19] MEDS: BROVANA NEB INH SCH ×2 (07:44→19:35)
[2017-05-19] MEDS: NS 1,000 ML IV SCH ×2 (09:11→19:32)
[2017-05-19] MEDS: PATIENT'S OWN MED PO SCH ×2 (09:55→10:00)
[2017-05-19] MEDS: FERROUS SULFATE PO SCH ×2 (10:03→21:45)
[2017-05-19] MEDS: THERA M PLUS PO SCH (10:03)
[2017-05-19] MEDS: SINGULAIR PO SCH (10:03)
[2017-05-19] MEDS: ASPIRIN EC PO SCH (10:03)
[2017-05-19] MEDS: CULTURELLE PO SCH (10:03)
[2017-05-19] MEDS: KEPPRA PO SCH ×2 (10:03→21:45)
[2017-05-19] MEDS: QUESTRAN PO SCH ×2 (10:12→21:46)
[2017-05-19] MEDS: VANCOMYCIN ORAL SOLN PO SCH (21:45)
[2017-05-19] MEDS: ZOCOR PO SCH (21:45)
[2017-05-20] MEDS: VANCOMYCIN ORAL SOLN PO SCH ×2 (03:00→09:34)
[2017-05-20] MEDS: NS 1,000 ML IV SCH ×2 (05:34→07:46)
[2017-05-20 06:04] LABS: MANUAL DIFF NEEDED? NO
[2017-05-20 06:06] LABS: BASO% 0.3 % (0.0-0.8); EOS# 0.16 X1000 (0.0-0.7); EOS% 4.5 % (0.0-10.0); HEMATOCRIT 29.9 % (42.0-52.0); HEMOGLOBIN 9.9 g/dL (14.0-18.0); IMM GRAN# 0.02 X1000 (0.0-0.04); IMM GRAN% 0.6 % (0.0-0.5); LYMPH% 16.8 % (20.5-51.1); MCH 27.7 PG (27-31); MCHC 33.1 g/dL (33-37); MCV 83.8 FL (81-99); MONO# 0.38 X1000 (0.11-0.59); MONO% 10.6 % (1.7-9.3); MPV 8.7 FL (7.4-10.4); NEUT% 67.2 % (42.2-75.2); PLT 200 X1000 (130-400); RBC 3.57 XMIL (4.7-6.1)
[2017-05-20 06:34] LABS: AGAP 10; ALBUMIN 2.7 g/dL (3.5-5.0); ALKALINE PHOSPHATASE 71 U/L (32-122); BUN 6 mg/dL (8-22); CALCIUM 7.7 mg/dL (8.8-10.2); CHLORIDE 107 mmol/L (98-107); COSMO 273; GOT 17 U/L (10-34); GPT 17 U/L (10-44); POTASSIUM 3.7 mmol/L (3.5-5.1); SODIUM 138 mmol/L (136-145); TCO2 21 mmol/L (25-35); TOTAL BILIRUBIN 0.37 mg/dL (0.20-1.00)
[2017-05-20] MEDS: ASPIRIN EC PO SCH (09:33)
[2017-05-20] MEDS: THERA M PLUS PO SCH (09:33)
[2017-05-20] MEDS: KEPPRA PO SCH (09:33)
[2017-05-20] MEDS: SINGULAIR PO SCH (09:33)
[2017-05-20] MEDS: CULTURELLE PO SCH (09:33)
[2017-05-20] MEDS: FERROUS SULFATE PO SCH (09:33)
[2017-05-20] MEDS: QUESTRAN PO SCH (09:34)
[2017-05-20] MEDS: PATIENT'S OWN MED PO SCH (10:00)
[2017-05-20] MEDS ORDERED: BROVANA NEB ONE ×2 (10:41)
[2017-05-20] MEDS: DUONEB (A & A) INH PRN (10:55)
[2017-05-20] MEDS: BROVANA NEB INH SCH (10:55)
[2017-05-20] MEDS: PULMICORT INH SCH (10:55)
[2017-05-20 14:54] VITALS: BP 148/86
[2017-05-20] MEDS ORDERED: FLAGYL PO SCH (21:00)
== END 2017-05-20 16:36 | disposition home health service (06) ==
LOC: SUPCPDRO → ED 17:16 → SUATTDRO 05-11 01:14 → ICU 05-11 01:14 → 3N 05-11 19:47
PROVIDERS: ATTEND Internal Medicine

== ENCOUNTER 2018-10-07 22:38 | Inpatient (IN) ==
[2018-10-07] MEDS ORDERED: DUONEB (A & A) INH ONE (23:08)
[2018-10-07 23:26] LABS: ALLEN TEST YES; BE -0.1 mmoll (-3.0-3.0); BLOOD TYPE ARTERIAL; HCO3-(ACT) 24.8 mmoll (20.0-26.0); O2(CT) 18.6 mL/dL (15.0-23.0); O2HB 95.9 % (95.0-99.0); PO2(98.6) 105 mmHg (60-100); SAMPLE BLOOD; SAO2 98.6 % (95.0-100.0); THB 13.7 g/dL (11.5-17.4); pH(98.6) 7.32 (7.35-7.45)
[2018-10-07 23:27] LABS: MODALITY CANNULA
[2018-10-07 23:28] LABS: PCO2(98.6) 52 mmHg (35-45)
[2018-10-07 23:38] LABS: BASO# 0.01 X1000 (0.0-0.2); BASO% 0.1 % (0.0-0.8); HEMATOCRIT 42.4 % (42.0-52.0); HEMOGLOBIN 13.1 g/dL (14.0-18.0); LYMPH% 6.6 % (20.5-51.1); MCH 24.1 PG (27-31); MCHC 30.9 g/dL (33-37); MCV 78.1 FL (81-99); MONO# 0.69 X1000 (0.11-0.59); MONO% 9.1 % (1.7-9.3); MPV 9.6 FL (7.4-10.4); NEUT# 6.38 X1000 (1.4-6.5); NEUT% 84.2 % (42.2-75.2); PLT 234 X1000 (130-400); RBC 5.43 XMIL (4.7-6.1); RDW 17.6 % (11.5-14.5); WBC 7.58 X1000 (4.8-10.8)
[2018-10-08 00:01] LABS: ALB/GLOB RATIO 1.6; ALBUMIN 4.4 g/dL (3.5-5.0); CALCIUM 8.9 mg/dL (8.8-10.2); CREATININE 1.9 mg/dL (0.7-1.2); POTASSIUM 4.8 mmol/L (3.5-5.1); TOTAL BILIRUBIN 0.32 mg/dL (0.20-1.00); TOTAL PROTEIN 7.2 g/dL (6.3-8.3)
[2018-10-08 00:25] LABS: CK INDEX 1.3 (0.0-2.5); CK-MB 4.28 ng/mL (0.0-5.0)
--- NOTE | 2018-10-08 01:20 | PROVIDER DOCUMENTATION ---
This chart was entered by Johana Vital Scribe, acting as scribe for Hiram Yañez DO. HPI-General Adult - General Chief Complaint: Shortness of Breath Stated Complaint: sob Time Seen by Provider: 10/07/18 23:05 Source: patient Allergies/Adverse Reactions: Patient Allergies Allergy/AdvReac Type Severity Reaction Status Date / Time No Known Allergies Allergy Verified 05/20/18 08:50 Home Medications: Home Medication List Medication Instructions Recorded Confirmed Last Taken Type Budesonide/Formoterol Fumarate 1 dose INH BID 04/26/17 10/08/18 05/19/18 History [Symbicort 160-4.5 Mcg Inhaler] Simvastatin 40 mg PO DAILY 04/26/17 10/08/18 05/19/18 History Tiotropium Cobb Inhaler 1 dose INH DAILY 04/26/17 10/08/18 05/19/18 History [Spiriva] Albuterol 2.5MG/Ipratrop 0.5MG 3 ml INH Q6H PRN PRN 07/14/17 10/08/18 05/19/18 History [Duoneb (A & A)] Ergocalciferol (Vitamin D2) 50,000 unit PO MO 07/14/17 10/08/18 05/19/18 History [Vitamin D] Montelukast Sodium [Singulair] 10 mg PO DAILY 07/14/17 10/08/18 05/19/18 History Acetaminophen [Pain Relief] 500 mg PO Q4H 05/20/18 10/08/18 05/19/18 History Levetiracetam [Keppra] 750 mg PO BID 05/20/18 10/08/18 05/19/18 History Magnesium Hydroxide [Milk of 30 ml PO PRN PRN 05/20/18 10/08/18 05/19/18 History Magnesia] Potassium Chloride 20 meq PO DAILY 05/20/18 10/08/18 05/19/18 History Multivitamins/Minerals [Centrum 1 ea PO DAILY #30 tab 05/24/18 10/08/18 Unknown Rx Silver] Polyethylene Glycol 3350 [Miralax] 17 gm PO DAILY PRN #20 powder, 05/24/1810/08 Unknown Rx packet Azithromycin 250 mg PO DAILY #11 tab 10/06/18 10/08/18 Unknown Rx Hydrocodone Bit/Homatropine 5 ml PO Q6-8H PRN PRN #120 syrup 10/06/18 10/08/18 Unknown Rx [Hycodan Syrup] Prednisone 20 mg PO BID #10 tab 10/06/18 10/08/18 Unknown Rx Furosemide [Lasix] 20 mg PO BID 10/08/18 10/08/18 Unknown History - History of Present Illness -Gen Adult Nature of Presenting Problems: Pt is 78/M presenting to ED w/ SOB. Pt was dx yesterday in ER w/ bronchitis. He was given antibiotics. Pt has nebulizer at home. SOB has been worsening. 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 Also c/o some abd pain earlier today. Location of Pain/Injury: reports: other (SOB) Pain Radiation: reports: no radiation Quality of Pain: reports: none Severity: reports: mild Onset/Duration: reports: this morning Timing: reports: still present Context/Activities at Onset: reports: none Modifying Factors: improves with: nothing Associated Symptoms: reports: cough, shortness of breath. denies: chest pain, diarrhea, fever/chills, nausea, vomiting Similar Symptoms Previously?: Yes Recently seen or treated by another doctor?: Yes Review of Systems - Adult - REVIEW OF SYSTEMS - ADULT Constitutional: reports: no symptoms reported. denies: chills, fever Eyes: reports: no symptoms reported Ears, Nose, Mouth & Throat: reports: no symptoms reported Cardiovascular: reports: no symptoms reported. denies: chest pain Respiratory: reports: cough, shortness of breath Gastrointestinal: reports: abdominal pain. denies: diarrhea, nausea, vomiting Genitourinary: reports: no symptoms reported Musculoskeletal: reports: no symptoms reported Integumentary: reports: no symptoms reported Neurological: reports: no symptoms reported. denies: dizziness/vertigo Psychiatric: reports: no symptoms reported Endocrine: reports: no symptoms reported Hematologic/Lymphatic: reports: no symptoms reported Allergic/Immunologic: reports: no symptoms reported All Other Systems: Reviewed and Negative Past History - Adult - PAST MEDICAL HISTORY-ADULT Review of Records: reports: Old Records Reviewed, Nursing Assessment Review, Medications Reviewed, Social history reviewed & non-contributory. Major Childhood Illnesses: reports: denies history Cardiovascular: reports: CHF, HTN, hyperlipidemia Respiratory: reports: asthma, COPD, sleep apnea, other (lung cancer) Gastrointestinal: reports: GERD Obstetrical/Gynecological: reports: denies history Genitourinary: reports: cancer (kidney), kidney disease Musculoskeletal: reports: denies history Neurological: reports: Seizures/Epilepsy, other (brain cancer; right lower extremity weakness) Endocrine/Immune: reports: Lymphoma Other Conditions: reports: denies history - PRIOR SURGERIES/PROCEDURES Surgical/Procedure History: reports: other (prostate removed, brain) - IMMUNIZATION STATUS Childhood Immunizations: See Nurse Assessment Flu Vaccine: See Nurse Assessment - FAMILY HISTORY Family History: reviewed, not pertinent - SOCIAL HISTORY Smoking: denies, non-smoker Substance Use: none/never Alcohol Use Frequency: never Living Situation: family Physical Exam-General - PHYSICAL EXAM-ADULT Initial Vital Signs Reviewed: Yes - CONSTITUTIONAL General Appearance: appears well, alert, no apparent distress, other (pt has R upper chest port) - EYES Eyes: PERRL/EOMI - HEAD, EARS, NOSE, MOUTH & THROAT HENMT: normocephalic/atraumatic, moist mucous membranes, normal ENT inspection, TMs normal, pharynx normal - NECK Neck: non-tender, full range of motion, supple, normal inspection - RESPIRATORY Respiratory: chest non-tender, normal breath sounds, wheezing (Bilat) - CARDIOVASCULAR Cardiovascular: normal peripheral pulses, regular rate, rhythm, no edema, no gallop, no JVD, no murmur - GASTROINTESTINAL (ABDOMEN) Abdominal Exam: normal bowel sounds, non tender, soft, distended - LYMPHATIC Lymphatic: no adenopathy - MUSCULOSKELETAL Back Exam: normal inspection, no CVA tenderness, no vertebral tenderness Extremity: normal range of motion, non-tender, normal gait, normal inspection - SKIN Integumentary: normal color, normal turgor, warm/dry - NEUROLOGIC Neurologic: grossly normal - PSYCHIATRIC Psych/Mental Status: normal mood/affect, normal thought content, normal thought process, oriented x 3 Progress - PLAN OF CARE/RESULTS Progress/Plan/Lab Results: Vital Signs - 8 hr 10/07/18 22:40 Temperature 97.4 F L Pulse Rate 114 H Respiratory Rate 20 Blood Pressure 162/124 O2 Sat by Pulse Oximetry 70 L Orders Category Date Time Status CHEST-PORTABLE [RAD] Stat Exams 10/07/18 23:06 Ordered ABG [RESP] Routine Lab 10/07/18 23:07 Ordered CBC WITH ELECTRONIC DIFF [HEME] Stat Lab 10/07/18 23:12 Ordered CK PROFILE [SP CHEM] Stat Lab 10/07/18 23:06 Ordered COMPREHENSIVE METABOLIC PANEL [CHEM] Stat Lab 10/07/18 23:06 Ordered LACTATE, PLASMA [CHEM] Stat Lab 10/07/18 23:12 Ordered PRO B-NATRIURETIC PEPTIDE Stat Lab 10/07/18 23:06 Ordered TROPONIN T Stat Lab 10/07/18 23:06 Ordered Albuterol 2.5MG/Ipratrop 0.5MG [Duoneb (A & A)] Med 10/07/18 23:08 Discontinued 3 ml INH NOW ONE Aerosol Treatments Routine Oth 10/07/18 23:08 Active Aerosol Treatments Stat Oth 10/07/18 23:08 Active EKG [EKG] Stat Ther 10/07/18 22:43 Ordered Result Diagrams: 10/07/18 23:08 10/07/18 23:08 Departure - Departure Date of Disposition Decision: 10/08/18 Time of Disposition Decision: DIAGNOSIS: Shortness of breath, COPD exacerbation, Pulmonary fibrosis Disposition: ADMITTED INPATIENT 09 Certified Medical Emergency: Emergent Condition: Fair Referrals and Follow-Ups: Myron Armednariz MD [Primary Care Provider] - - Critical Care Note This patient required my direct & personal management of CC.: No Attestation - Physician/ HILL Attestation Patient care was provided by Advanced Practice Provider:: No The physician spent face to face time with patient:: Yes Advanced Practice Provider documentation review:: Supervising physician onsite and consulted in the evaluation and care of this patient. The physician did have a face to face encounter with the patient. This chart was documented by the indicated scribe, (Johana Vital, Shirley) and accurately reflects the services I performed and decisions made by me, Hiram Yañez DO, as attested by the provider's signature.
[2018-10-08] MEDS ORDERED: ZITHROMAX 500 MG/NS 500 MG/250 ML IVPB IV ONE (02:18)
[2018-10-08] MEDS ORDERED: ROCEPHIN 1 GM in NS 50 ML IV ONE (02:18)
[2018-10-08] MEDS ORDERED: SOLU-MEDROL IV ONE (02:18)
[2018-10-08] MEDS ORDERED: MIRALAX PO PRN (02:19)
[2018-10-08] MEDS ORDERED: MILK OF MAGNESIA PO PRN (02:19)
[2018-10-08] MEDS ORDERED: TYLENOL PO SCH (02:30)
[2018-10-08] MEDS: DUONEB (A & A) INH SCH ×4 (04:00→21:32)
--- NOTE | 2018-10-08 05:27 | Diag Imaging Result Doc PS360 ---
EXAM: CHEST-PORTABLE HISTORY: sob TECHNIQUE: Portable chest single view COMPARISON: 10/06/2018 FINDINGS: The lungs are well expanded. The heart is not enlarged. No change in the right-sided portacatheter. No pneumothorax. The vessels are not distended. There are no infiltrates. Increased markings in the mid right lung consistent with scarring. No effusion identified. IMPRESSION: Stable chest Electronically signed by Dominik Solo 10/08/2018 5:24 AM
--- NOTE | 2018-10-08 05:49 | Diag Imaging Result Doc PS360 ---
EXAM: CT THORAX W/O CONTRAST HISTORY: COPD exac ?PNA TECHNIQUE: Emergency CT chest without contrast COMPARISON: 04/10/2018 FINDINGS: No pleural effusions. No cardiomegaly. No thoracic aortic aneurysm. There are small mediastinal nodes. Mild emphysema. No consolidation. No pneumothoraces. There is scarring in the mid right lung. There is a right subclavian portacatheter with the tip near the junction of the right atrium. There is bronchial wall thickening IMPRESSION: Emphysema with fibrosis Bronchial wall thickening A preliminary report was given This exam was performed using automated exposure control, adjustment of mA or kV according to patient size, and/or use of iterative reconstruction technique. Electronically signed by Dominik Solo 10/08/2018 5:47 AM
[2018-10-08] MEDS ORDERED: ZOFRAN IV PRN (08:08)
[2018-10-08] MEDS ORDERED: TYLENOL PO PRN (08:13)
[2018-10-08 08:14] LABS: URINE SOURCE CLEAN CATCH
[2018-10-08 08:18] LABS: BILIRUBIN URINE NEGATIVE (NEGATIVE); BLOOD URINE NEGATIVE (NEGATIVE); COLOR STRAW; GLUCOSE URINE NEGATIVE (NEGATIVE); KETONE URINE NEGATIVE (NEGATIVE); LEUKOCYTES URINE NEGATIVE (NEGATIVE); NITRITE URINE NEGATIVE (NEGATIVE); PROTEIN URINE NEGATIVE (NEGATIVE); TURBIDITY URINE CLEAR (CLEAR); UROBILINOGEN URINE NORMAL (NORMAL)
[2018-10-08 08:19] LABS: UR EPITHELIAL CELLS <10 /HPF (<10); URINE BACTERIA NEGATIVE /HPF; URINE RBC <10 /HPF (<10); URINE WBC <10 /HPF (<10)
--- NOTE | 2018-10-08 08:20 | HISTORY AND PHYSICAL ---
SHORT NOTE/ADDENDUM Patient of Dr. Myron Armendariz. Mr. Jim Salazar is coming in here complaining of worsening shortness of breath which has been ongoing for several days. He was seen in the ER yesterday and given Zithromax and some cough medication. His breathing has gotten progressively worse. He denies any fevers or chills. He does admit to having some orthopnea and he has a cough productive of whitish sputum. His lab work is notable for a BUN of 28, creatinine 1.9. His white count is 7,000, H and H 13 and 42, platelets 234,000. A blood gas was drawn. His pH was 7.32, PCO2 of 52 and PO2 of 105 and this was done on 3 L. His chest film reviewed by me was devoid of any overt infiltrative process although there were some nonspecific findings on the right lung which could be due to poorly penetrated film. PHYSICAL EXAMINATION: VITAL SIGNS: Blood pressure 150/89, respirations 17, temperature is 97.4 degrees, heart rate is 99. GENERAL: He is a pleasant, elderly -Emirati man not in acute respiratory distress. He is chronically ill looking however. His exam is notable for decreased air entry in both lung conner, expiratory wheezes in both lung conner. He is mildly pale. ASSESSMENT: My assessment of this patient is that he probably has COPD exacerbation; however, I do feel he will be best served if we can do a dedicated CT scan, noncontrast to rule out infiltrative process. The patient was admitted here in April for pneumonia last year. Also, the patient has coexisting lung cancer. I am not sure if it is metastatic or if it is primary per the family. So, this also has a role to play in the rationale for doing CT scan, simultaneous pneumonia. We will start patient on community-acquired antibiotics i.e. either Levaquin or Rocephin and Zithromax. We will start him on short and long-acting bronchodilators and steroids. By the way, the patient does have mild hypercapnia and may be consideration for BiPAP when we repeat another ABG later today. cc: Anthony Mcdonough MD
[2018-10-08 09:09] LABS: BASO# 0.01 X1000 (0.0-0.2); BASO% 0.2 % (0.0-0.8); HEMATOCRIT 41.7 % (42.0-52.0); LYMPH# 0.49 X1000 (1.2-3.4); LYMPH% 8.6 % (20.5-51.1); MCH 24.6 PG (27-31); MCHC 31.2 g/dL (33-37); MONO# 0.31 X1000 (0.11-0.59); MONO% 5.4 % (1.7-9.3); MPV 9.4 FL (7.4-10.4); NEUT# 4.91 X1000 (1.4-6.5); NEUT% 85.8 % (42.2-75.2); PLT 210 X1000 (130-400); RBC 5.28 XMIL (4.7-6.1); RDW 17.6 % (11.5-14.5); WBC 5.72 X1000 (4.8-10.8)
[2018-10-08 09:38] LABS: ANISOCYTOSIS 1+; BANDS 12 % (0-1); HYPOCHROM 1+; LYMPHS 4 % (21-51); MICROCYTOSIS 1+; MONO 2 % (1-9); SEGS 82 % (42-75); TOXIC GRANULATION OCCASIONAL
[2018-10-08 09:41] LABS: CREATININE 1.9 mg/dL (0.7-1.2); POTASSIUM 5.3 mmol/L (3.5-5.1)
[2018-10-08 09:56] LABS: ALLEN TEST NO; BE 1.5 mmoll (-3.0-3.0); BLOOD TYPE ARTERIAL; HCO3-(ACT) 26.1 mmoll (20.0-26.0); O2(CT) 18.3 mL/dL (15.0-23.0); O2HB 96.3 % (95.0-99.0); PO2(98.6) 107 mmHg (60-100); SAMPLE BLOOD; SAO2 98.9 % (95.0-100.0); THB 13.4 g/dL (11.5-17.4); pH(98.6) 7.33 (7.35-7.45)
[2018-10-08 09:58] LABS: MODALITY SIMPLE MASK; PCO2(98.6) 54 mmHg (35-45)
[2018-10-08] MEDS: HYDROMET LIQUID PO PRN ×2 (09:58→16:11)
[2018-10-08] MEDS: ZOCOR PO SCH (09:58)
[2018-10-08] MEDS: KEPPRA PO SCH ×2 (09:58→20:36)
[2018-10-08] MEDS: LASIX PO SCH ×2 (09:58→20:36)
[2018-10-08 10:14] LABS: CK INDEX 1.5 (0.0-2.5); CK-MB 4.39 ng/mL (0.0-5.0)
--- NOTE | 2018-10-08 10:45 | PROGRESS NOTE ---
DATE: 10/08/2018 OVERNIGHT EVENTS: Mr. Salazar was admitted for COPD exacerbation. He also had hypercarbia with mild acidosis. I was informed that court recording monitor telemetry had ST elevation, so I added to the patient at bedside. The patient denies any chest pain. He is feeling a little short of breath. Repeat EKG, however, has normal sinus rhythm. We discussed about his findings. I answered all of his questions. OBJECTIVE: Vitals: Temperature of 97.8 degrees, pulse of 81 per minute, blood pressure of 149/79, saturation of 98% on 2 L nasal cannula. General: On physical examination, does not appear in acute distress. Oral cavity is moist. Lungs: Air entry bilaterally equal with prolonged expiratory phase and mild wheezing. No rhonchi or crackles. Heart: S1, S2 normal. No murmur or gallop. Abdomen: Soft, nontender. He has a right-sided chest Port-A-Cath. LABS: Persistent hypercarbia. However, his pCO2 has always been on the higher side. I will repeat ABG tomorrow. ASSESSMENT AND PLAN: 1. Acute exacerbation of chronic obstructive pulmonary disease due to acute bronchitis, based on symptoms of increasing cough, shortness of breath and CT finding. Continue albuterol ipratropium nebulization scheduled, intravenous steroids, his home tiotropium, montelukast, intravenous ceftriaxone and azithromycin. Follow up with sputum culture if he is able to make. Continue oxygenation. He is on home oxygen to maintain saturation more than 90%. 2. History of seizure disorder. Continue home levetiracetam. 3. History of hyperlipidemia. Continue home simvastatin. 4. Continue history of metastatic renal cell carcinoma status post nephrectomy. Aware. The patient has a right-sided chest port. 5. Others. Continue home medication off hydrocodone, furosemide, magnesium hydroxide, MiraLAX to avoid constipation, ergocalciferol. 6. History of chronic obstructive pulmonary disease on home oxygen, aware. Plan as mentioned above. 7. History of seasonal allergy. Continue montelukast. 8. History of gastroesophageal reflux disease. Continue milk of magnesium hydroxide. 9. Disposition: Patient remains on medical floor for monitoring of respiratory status. Plan of care was discussed with the patient and her daughter at bedside, who is surrogate decision maker. All of their questions have been answered. cc: Jake Maharaj MD
[2018-10-08] MEDS: SOLU-MEDROL IV SCH (11:14)
--- NOTE | 2018-10-08 11:42 | HISTORY AND PHYSICAL ---
PRIMARY CARE PHYSICIAN: Dr. Myron Armendariz ONCOLOGIST: Dr. Alonso DATE AND TIME: 10/08/2018 at 0500. CHIEF COMPLAINT: Shortness of breath. HISTORY OF PRESENT ILLNESS: Mr. 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 The patient states that for several days now, he has had worsening respiratory symptoms. He reports that he has had worsening shortness of breath with orthopnea as well as increased oxygen use and nebulizer treatments. The patient reports that at home he does use DuoNeb treatments normally approximately 4 times a day and does use supplemental oxygen only as needed, though he states he has increased the usage of both of these significantly. He also reports he has had a productive cough with thick white sputum. He was seen in the ER yesterday and was diagnosed with bronchitis. He was given prescriptions for azithromycin, Hycodan syrup and prednisone. The patient states that after returning home, his symptoms did improve some, though last night just prior to his arrival, his symptoms did begin to worsen and ultimately he did decide to return to the ER for further treatment and evaluation. The patient at this time is denying any headache, dizziness or chest pain. He is denying any abdominal pain, nausea, vomiting or diarrhea. The patient states that he does occasionally have problems with constipation and that his last bowel movement was yesterday. He denied any hematochezia or melena. The patient's abdomen did appear to be slightly distended upon evaluation, and he states that it is slightly more swollen than usual. Though as previously mentioned, he is denying any other abdominal symptoms at this time. He denies any dysuria or urinary frequency. The patient does report that he has chronic swelling in his right lower extremity, though he states this has not worsened. He also denies any fever, body aches or chills. Upon evaluation in the ER, the patient's oxygen saturation was noted to be 70% upon room air in triage. Upon arrival, his heart rate was 114, respirations 20, blood pressure is 162/124, temperature was 97.4. After placing the patient on nasal cannula at 4 L, his oxygen saturations have improved and have been maintaining in the 90s. Arterial blood gases did show that he was slightly hypercapnic with a pCO2 level of 51, his pH was slightly low at 7.32, though his pO2 was 105, O2 saturation was 98%. His arterial blood gases were drawn on FiO2 of 32% . The patient has remained afebrile while in the ER. He does not have any leukocytosis. He does have elevated BUN and creatinine, though does have chronic kidney disease, and this does appear to be at the patient's baseline. CK was slightly elevated, though his troponin was negative. EKG showed sinus tachycardia at a rate of 107 with a QTC of 432. His chest x-ray did not show any infiltrate, though there were increased markings in the mid right lung consistent with scarring. Though given his symptoms as well as history of pneumonia and cancer, we did decide to perform a CT of the chest which did show emphysema with fibrosis and bronchial wall thickening. There were also some small mediastinal nodes noted as well. At this time, the patient will be admitted for treatment and evaluation of his COPD exacerbation. REVIEW OF SYSTEMS: A 14-point review of systems was conducted with the patient , and all were negative except for pertinent positives mentioned in the above HPI. PAST MEDICAL HISTORY: 1. 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 Alonso and Dr. Sharp in [place]. He is receiving active chemotherapy at this time, with this last treatment being on Wednesday, approximately 3 days ago. 2. Chronic kidney disease. 3. Hypertension. 4. Hyperlipidemia. 5. COPD. 6. History of seizures. PAST SURGICAL HISTORY: 1. Right nephrectomy. 2. Prostatectomy. 3. Craniotomy x2. SOCIAL HISTORY: The patient currently lives with his family. His daughter was present at the bedside at the time of my examination. He is . The patient is a former smoker. Unfortunately he did smoke for a very long time, had quit, did unfortunately start back, though has quit again approximately 1-1/2 weeks ago. He has no known alcohol or illicit drug use. He is retired. FAMILY HISTORY: Positive for his father having a history of Alzheimer's. Mother had a history of diabetes mellitus. There is significant family history for malignancies which include his grandfather having a history of brain cancer. Two of his sisters had cancer which included colon and bone cancer. ALLERGIES: The patient has no known allergies. HOME MEDICATIONS: 1. DuoNeb and albuterol/Atrovent treatments 3 mL inhaled q.6 hours p.r.n. 2. Azithromycin 250 mg p.o. daily. 3. Symbicort 160/4.5 mcg inhaler 1 dose inhaled b.i.d. 4. Vitamin D 250,000 units p.o. once weekly on Mondays. 5. Lasix 20 mg p.o. b.i.d. 6. Hycodan syrup 5 mL p.o. q.6 to 8 hours p.r.n. for cough. 7. Keppra 750 mg p.o. b.i.d. 8. Milk of magnesia 30 mL p.o. p.r.n. for constipation. 9. Singulair 10 mg p.o. daily. 10.Centrum Silver vitamin 1 p.o. daily. 11.MiraLAX 17 g p.o. daily p.r.n. for constipation. 12.Potassium chloride 20 mEq p.o. daily. 13.Prednisone 20 mg p.o. b.i.d. 14.Simvastatin 40 mg p.o. daily. 15.Spiriva 18 mcg 1 puff inhaled daily. DIAGNOSTIC DATA: White blood cell count is 7580, hemoglobin 13.1, hematocrit 42.4, platelet count is 234. Sodium is 134, potassium 4.8, chloride 93, serum bicarb 26, BUN is 28, creatinine 1.9 with GFR of 42, glucose is 178, calcium 8.9. Liver function tests within normal limits. CK is 329. CK index is 1.3. CKMB is 4.28. Troponin is less than 0.01. ProBNP is 367. Plasma lactate is 2.4. Arterial blood gases are obtained on FiO2 of 32% with pH of 7.32, pCO2 is 52, pO2 is 105, HCO3 was 24.8, with a base excess of negative 0.1, O2 saturation was 98.6. Urinalysis was obtained via clean catch and was negative for protein, glucose, ketones, blood, nitrites, leukocytes and bacteria. EKG showed sinus tachycardia at a rate of 107 with a QTC of 432. Chest x-ray showed no change in the right-sided Port-A-Cath. There was no pneumothorax. The vessels were not distended. There were no infiltrates. There were increased markings in the right mid lung consistent with scarring. CT of thorax without contrast did show emphysema with fibrosis and bronchial wall thickening. PHYSICAL EXAMINATION: VITAL SIGNS: Temperature is 97.8, heart rate 97, respirations 20, blood pressure is 121/76, oxygen saturation was 97% on nasal cannula at 4 L. GENERAL: Mr. Salazar is a pleasant 78-year-old male. He was resting on the ER stretcher. He was in no acute distress. He was awake and alert and able to answer questions appropriately. HEENT: Head is atraumatic and normocephalic. Pupils are equal, round, and reactive to light, were 3 mm bilaterally and brisk. Oral mucosa is moist. Oropharynx is clear. NECK: Supple. Trachea midline. No JVD noted. Also no hepatojugular reflux noted. CARDIOVASCULAR: The patient has regular rate and rhythm. He does have S1 and S2 present, though heart sounds were difficult to auscultate, though this is likely secondary to ambient respiratory noise. PULMONARY: The patient has symmetrical chest expansion bilaterally, and lung sounds in bilateral full conner did have expiratory wheezing noted. ABDOMEN: Soft. It does appear to be slightly distended, though the patient was nontender upon palpation. Bowel sounds were present in all 4 quadrants and were normoactive. EXTREMITIES: No cyanosis or clubbing noted, though the patient did have some swelling noted to his right lower extremity, though the patient states this is not of new onset and has not worsened. He did not have any warmth or erythema noted to this extremity and did not have any tenderness upon palpation of the deep venous system. Pulse, motor and sensory are intact in all extremities. Pedal pulses and radial pulses were 2+ bilaterally. INTEGUMENTARY: The patient's skin is slightly pale, was dry and intact though. NEUROLOGICAL: The patient is alert and oriented x4. There do not appear to be any focal neurological deficits noted. ASSESSMENT AND PLAN: 1. Chronic obstructive pulmonary disease exacerbation. For treatment of this, we have placed the patient with scheduled DuoNeb treatments. We have also placed him with IV steroids with Solu Medrol at 40 mg q.12 hours. We will continue with aggressive pulmonary toilet with incentive spirometry, frequent encouragement of turn, cough and deep breathing. Blood cultures and sputum cultures have been obtained. We will go ahead and place the patient with antibiotic coverage of Rocephin and azithromycin. We will continue with oxygen supplementation and given his hypercapnia, we will repeat an arterial blood gas later on this morning for reevaluation. We will continue to monitor his respiratory status closely. 2. 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 The patient is receiving active chemotherapy with Dr. Alonso at this time. We have placed a consult and will await their evaluation and further recommendations for management. 3. Chronic kidney disease. Looking back at the patient's previous renal function, he does appear to have a baseline creatinine of 1.5 to 1.9. He does appear to be at his baseline at this time, though we will continue to monitor this. We will avoid nephrotoxic medications and renally dose medicines as necessary. 4. History of seizures. We will continue his Keppra. 5. DVT prophylaxis will be provided with SCDs. The patient has been placed on the Medical Floor with telemetry. He will have vital signs q.4 hours. We will do strict intake and output. He will be on a heart healthy diet. We will repeat a CBC, BMP, CK and troponin as well as ABG later on this morning. Further orders and recommendations pending hospital course, diagnostic studies and physician evaluation. Dictated by ROBYN Mercado for Anthony Mcdonough MD cc: Anthony Mcdonough MD [facility]
[2018-10-08] MEDS ORDERED: SOLU-MEDROL IV SCH (15:00)
--- NOTE | 2018-10-08 15:34 | HEMO/ONC CONSULTATION ---
DATE: 10/08/2018 CHIEF COMPLAINT: We were consulted for further evaluation of the patient's cancer. HISTORY OF PRESENT ILLNESS: Mr. Salazar is a pleasant 78-year-old male that came into the emergency department complaining of increased shortness of breath. The patient was diagnosed yesterday with bronchitis. He was given antibiotics but his shortness of breath continued to get worse. The patient says he also has some mild abdominal pain. Denies any nausea or vomiting. No fevers or chills. No clinical signs of bleeding. Mr. Salazar is well known to us in our clinic where he follows up for his metastatic cancer. 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 He underwent left frontal craniotomy with gross total resection 08/18/2016. Pathology revealed renal cell metastasis. He is status post stereotactic brain radiation by Dr. Sharp. He also had post nephrectomy performed by Dr. Fraire on 11/19/2016. He is status post bead placement per Neurosurgery. He was started on Votrient on 01/15/2017. He received brain radiation in March 2017. The patient's Votrient was discontinued on 06/29 due to PET scan showed hypermetabolic metastatic lymphadenopathy of the neck, chest and abdomen. He was started on Opdivo on 07/07/2017. He also received 4 doses of Avastin due to cerebral edema finished on 04/05/2018. His last dose of Opdivo was given 10/05/2018. 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 PAST SURGICAL HISTORY: Right nephrectomy, brain surgery. SOCIAL HISTORY: Patient is a longtime smoker. Denies any illicit drug or alcohol use. FAMILY HISTORY: Noncontributory. ALLERGIES: No known drug allergies. HOME MEDICATIONS: Tylenol, DuoNebs, azithromycin, Symbicort, vitamin D, Lasix, Hycodan syrup, Keppra, Milk of Magnesia. Singulair, Centrum Silver, MiraLAX, potassium chloride , prednisone, simvastatin and Spiriva. REVIEW OF SYSTEMS: Negative, other than what is mentioned in the HPI. PHYSICAL EXAM: Vital Signs: Temperature 98.1 degrees, heart rate 93, respiratory rate 18, blood pressure 114/76, satting 97% on room air. General: Patient is awake, lying in bed, no acute distress noted. HEENT: Anicteric. Pupils PERRLA. Mucous membranes appear to be moist. Cardiovascular: S1, S2. Regular rhythm. Chest: Bilateral breath sounds diminished bilaterally. Abdomen: Soft, nontender. Bowel sounds present in all 4 quadrants. No hepatosplenomegaly noted. Skin: Warm, dry and intact. No petechiae, no clubbing, no rashes or cyanosis. Neurologic: Alert and oriented x3. No focal deficits noted. LABORATORY DATA: White blood cell count 7.58, hemoglobin 13.1, hematocrit 42.4 , platelets are 234. Potassium 4.8, BUN 28, creatinine 1.9. RADIOLOGY RESULTS: Chest CT showed emphysema with fibrosis, bronchial wall thickening. ASSESSMENT AND PLAN: 1. 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 The patient's cancer is very well controlled at this time. Once patient is discharged, he will continue to do his Opdivo every 2 weeks. We will continue to monitor closely. 2. Brain metastasis, status post radiation: Patient recently had magnetic resonance imaging that also showed no evidence of disease at this time. Continue to monitor closely. 3. Chronic obstructive pulmonary disease. Continue recommendations by primary medical team. Continue oxygen and nebulizers as ordered. 4. Seizure disorder. Continue Keppra. Home medications are ordered. Continue recommendations by primary medical team. Plan of care discussed with Dr. Alonso. Dictated by ROBYN Leiva for Med Alonso MD cc: ROBYN Leiva MD [facility]
[2018-10-09] MEDS ORDERED: ROCEPHIN 1 GM in NS 50 ML IV SCH (03:00)
[2018-10-09] MEDS ORDERED: ZITHROMAX 500 MG/NS 500 MG/250 ML IVPB IV SCH (03:30)
[2018-10-09] MEDS: DUONEB (A & A) INH SCH ×6 (04:01→23:04)
[2018-10-09 06:01] LABS: ALLEN TEST YES; BE 3.5 mmoll (-3.0-3.0); BLOOD TYPE ARTERIAL; HCO3-(ACT) 27.6 mmoll (20.0-26.0); O2(CT) 18.8 mL/dL (15.0-23.0); O2HB 95.8 % (95.0-99.0); PO2(98.6) 102 mmHg (60-100); SAMPLE BLOOD; SAO2 98.4 % (95.0-100.0); THB 13.9 g/dL (11.5-17.4); pH(98.6) 7.34 (7.35-7.45)
[2018-10-09 06:02] LABS: MODALITY CANNULA; PCO2(98.6) 57 mmHg (35-45)
[2018-10-09] MEDS: SPIRIVA INH SCH (09:04)
[2018-10-09] MEDS: KEPPRA PO SCH ×2 (09:13→21:05)
[2018-10-09] MEDS: SINGULAIR PO SCH (09:13)
[2018-10-09] MEDS: LASIX PO SCH ×2 (09:14→21:05)
[2018-10-09] MEDS: CENTRUM SILVER PO SCH (09:14)
[2018-10-09] MEDS: ZOCOR PO SCH (09:15)
[2018-10-09] MEDS: MAXIPIME 2 GM in NS 100 ML IV SCH (10:06)
[2018-10-09 10:16] LABS: CALCIUM 8.5 mg/dL (8.8-10.2); CREATININE 1.7 mg/dL (0.7-1.2); POTASSIUM 4.2 mmol/L (3.5-5.1)
--- NOTE | 2018-10-09 10:48 | PROGRESS NOTE ---
DATE: 10/09/2018 SUBJECTIVE: Mr. Salazar was admitted for COPD exacerbation. This morning I was paged by the nurse that his pCO2 was high. I evaluated the patient at bedside. At that time, he was appearing short of breath and wheezy. He was also using accessory muscles of his neck on. After my initial encounter, I again evaluated 30 minutes later. At that point, his shortness of breath and wheezing had started getting worse. The patient's sister and daughter were at bedside. Plan of care about transferring him to [facility], change of medications and BiPAP were discussed with them. All of their questions have been answered. OBJECTIVE: Vitals: Currently temperature 98.6 degrees, pulse 81, blood pressure 148/94, saturating 100% on 3 L nasal cannula. General: Patient is in moderate distress because of shortness of breath. HEENT: Oral cavity moist. Lungs: Air entry significantly decreased with prolonged expiratory phase and wheezing bilaterally. No crackles. Cardiovascular: S1, S2 normal. Tachycardic. No murmur, rub, or gallop. Abdomen: Distended with gas, nontender. Extremities: No lower extremity edema. He has a right-sided chest Port-A-Cath. LABORATORIES: Suggestive of resolution of hyperkalemia, baseline chronic kidney disease stage 3. ABG suggestive of hypercarbia with pCO2 of 58, pH of 7.34. ASSESSMENT AND PLAN: 1. Acute exacerbation of COPD due to acute bronchitis based on symptoms and chest CT findings. Increased frequency of albuterol ipratropium nebulization. Continue intravenous steroids. Change antibiotics to intravenous cefepime. Follow up sputum culture. Start patient on BiPAP. Maintain oxygenation more than 92%. Follow up with repeat ABG. Transfer patient to [facility]. 2. History of seizure disorder. Continue home levetiracetam. Continue home simvastatin for hyperlipidemia. 3. History of metastatic renal cell had carcinoma with metastasis to brain, status post right nephrectomy, status post radiation. Hematology/Oncology on board. Currently, the cancer is in remission. He is on Opdivo every 2 weeks infusion. 4. History of chronic obstructive pulmonary disease on home oxygen with current exacerbation. Plan as mentioned above. 5. Others, continue montelukast for history of seasonal allergy, Milk of Magnesia for history of gastroesophageal reflux disease, hydrocodone for chronic pain, MiraLAX to avoid constipation and ergocalciferol for vitamin D supplementation. DISPOSITION: The patient will be transferred from medical floor to [facility]. Plan of care was discussed with the patient and his family at bedside. All of their questions have been answered. cc: Jake Maharaj MD
[2018-10-09] MEDS: SOLU-MEDROL IV SCH (10:49)
[2018-10-09] MEDS: MUCOMYST 20% INH SCH ×2 (11:08→19:40)
[2018-10-09 11:57] LABS: ALLEN TEST YES; BE 5.6 mmoll (-3.0-3.0); BLOOD TYPE ARTERIAL; HCO3-(ACT) 29.2 mmoll (20.0-26.0); METHB 1.1 % (0.0-1.5); O2(CT) 18.7 mL/dL (15.0-23.0); O2HB 94.8 % (95.0-99.0); PO2(98.6) 84 mmHg (60-100); SAMPLE BLOOD; SAO2 97.4 % (95.0-100.0); pH(98.6) 7.35 (7.35-7.45)
[2018-10-09 12:00] LABS: MODALITY BI PAP; PCO2(98.6) 60 mmHg (35-45)
[2018-10-09] MEDS ORDERED: SOLU-MEDROL IV ONE (20:23)
[2018-10-10] MEDS: DUONEB (A & A) INH SCH ×6 (02:48→23:07)
[2018-10-10 05:17] LABS: ALLEN TEST YES; BE 4.3 mmoll (-3.0-3.0); BLOOD TYPE ARTERIAL; HCO3-(ACT) 28.2 mmoll (20.0-26.0); METHB 0.7 % (0.0-1.5); O2(CT) 18.8 mL/dL (15.0-23.0); PO2(98.6) 96 mmHg (60-100); SAMPLE BLOOD; SAO2 98.7 % (95.0-100.0); THB 13.9 g/dL (11.5-17.4); pH(98.6) 7.34 (7.35-7.45)
[2018-10-10 05:19] LABS: MODALITY BI PAP; PCO2(98.6) 59 mmHg (35-45)
[2018-10-10 05:44] LABS: BASO# 0.01 X1000 (0.0-0.2); BASO% 0.2 % (0.0-0.8); HEMATOCRIT 43.7 % (42.0-52.0); HEMOGLOBIN 13.3 g/dL (14.0-18.0); LYMPH# 0.66 X1000 (1.2-3.4); LYMPH% 14.6 % (20.5-51.1); MCH 24.3 PG (27-31); MCHC 30.4 g/dL (33-37); MCV 79.9 FL (81-99); MONO# 0.34 X1000 (0.11-0.59); MONO% 7.5 % (1.7-9.3); MPV 9.6 FL (7.4-10.4); NEUT% 77.7 % (42.2-75.2); PLT 240 X1000 (130-400); RBC 5.47 XMIL (4.7-6.1); RDW 17.7 % (11.5-14.5); WBC 4.51 X1000 (4.8-10.8)
[2018-10-10 06:28] LABS: CALCIUM 9.2 mg/dL (8.8-10.2); CREATININE 1.7 mg/dL (0.7-1.2); POTASSIUM 5.2 mmol/L (3.5-5.1)
--- NOTE | 2018-10-10 07:28 | EKG Report ---
Test Performed on : 10/08/2018 09:31:00 AM Test Reason : ?ST elevation on monitor Blood Pressure : / mmHG Vent. Rate : 078 BPM Atrial Rate : 078 BPM P-R Int : 204 ms QRS Dur : 098 ms QT Int : 378 ms P-R-T Axes : 066 036 064 degrees QTc Int : 430 ms Normal sinus rhythm. Normal ECG When compared with ECG of 07-OCT-2018 22:50, (Unconfirmed) No significant change was found Confirmed by Edson LEE, Brayd Santo ([id number]) on 10/10/2018 8:31:36 AM
[2018-10-10] MEDS: ZOCOR PO SCH (08:20)
[2018-10-10] MEDS: SINGULAIR PO SCH (08:20)
[2018-10-10] MEDS: KEPPRA PO SCH ×2 (08:20→21:14)
[2018-10-10] MEDS: MAXIPIME 2 GM in NS 100 ML IV SCH (08:20)
[2018-10-10] MEDS: CENTRUM SILVER PO SCH (08:20)
[2018-10-10] MEDS: LASIX PO SCH ×2 (08:20→21:15)
[2018-10-10] MEDS: SOLU-MEDROL IV SCH ×3 (08:21→23:16)
--- NOTE | 2018-10-10 08:23 | EKG Report ---
Test Performed on : 10/07/2018 10:50:27 PM Test Reason : sob Blood Pressure : / mmHG Vent. Rate : 107 BPM Atrial Rate : 107 BPM P-R Int : 182 ms QRS Dur : 080 ms QT Int : 324 ms P-R-T Axes : 072 036 068 degrees QTc Int : 432 ms Sinus tachycardia. Otherwise normal ECG When compared with ECG of 07-OCT-2018 22:44, (Unconfirmed) ST less elevated in Inferior leads ST no longer depressed in Lateral leads Unconfirmed Result
[2018-10-10] MEDS: MUCOMYST 20% INH SCH ×2 (08:30→19:35)
[2018-10-10] MEDS ORDERED: LASIX IV ONE (08:36)
[2018-10-10] MEDS ORDERED: VITAMIN D PO SCH (10:04)
--- NOTE | 2018-10-10 10:27 | PROGRESS NOTE ---
DATE: 10/10/2018 INTERVAL HISTORY: Yesterday, patient was transferred from medical floor to [facility]. I saw him again later during the day. At that time, he did not appear in any distress, but he was still significantly wheezing, so BiPAP was continued and he was kept n.p.o. At nighttime, a BiPAP break was trialed, but his work of breathing was increasing, so it was put back on. This morning I saw him and right before I saw him, he was transferred from BiPAP to nasal cannula. SUBJECTIVE: He denies any chest pain. He feels a little short of breath and is audibly wheezing. He is making sputum and coughing. OBJECTIVE: Vital signs: Temperature 96.9, pulse 75, respiratory 17, blood pressure 130/84, saturating 100% on BiPAP. General: Appears in mild distress. Audibly wheezing. Oral cavity has a pool of saliva. Lungs: Air entry significantly decreased bilaterally with prolonged expiratory phase and wheezes. No crackles. Cardiovascular: S1, S2 normal. No murmur, rub, or gallop. Not tachycardic. Abdomen: Distended with gas. Nontender. Extremities: No lower extremity edema. He has a right-sided chest Port-A-Cath. LABORATORIES: Suggestive of no leukocytosis, stable hemoglobin, hematocrit and platelet count. Hypercarbia which is fairly compensated, hyperkalemia, chronic kidney disease, stage 3. Microbiology: Sputum culture, no growth to date. IMAGING: Chest CT on admission had detected bronchitis. ASSESSMENT AND PLAN: 1. Acute exacerbation of chronic obstructive pulmonary disease due to acute bronchitis based on symptoms and chest CT findings. Continue albuterol-ipratropium nebulization, intravenous steroids, intravenous cefepime. Follow up sputum culture. Continue to cycle BiPAP and nasal cannula. Follow up with frequent ABG. Continue to monitor in [facility]. 2. Continue home levetiracetam for history of seizures, simvastatin for history of hyperlipidemia, montelukast for seasonal allergy, Milk of Magnesia for GERD, hydrocodone for chronic pain, MiraLAX to avoid constipation, ergocalciferol for vitamin D supplementation. 3. History of chronic kidney disease, stage 3. Appears stable. Continue 1 time dose of Lasix to help with wheezing. 4. History off metastatic renal cell carcinoma with metastasis to brain, status post right nephrectomy and status post brain radiation. Hematology-Oncology on board. Currently, his cancer is in remission. He is on Opdivo every 2 weeks infusion. DISPOSITION: Patient remains in [facility]. I will follow up with ABG in the afternoon time. If his breathing worsens, I will consult Pulmonology for further recommendation. Plan of care was discussed with the patient. All of his questions have been answered. I will keep him n.p.o. except ice chips and water until his breathing is stabilized. cc: Jake Maharaj MD
[2018-10-10] MEDS: SPIRIVA INH SCH (11:45)
[2018-10-10 12:31] LABS: ALLEN TEST YES; BE 9.2 mmoll (-3.0-3.0); BLOOD TYPE ARTERIAL; METHB 1.1 % (0.0-1.5); O2(CT) 19.8 mL/dL (15.0-23.0); O2HB 95.6 % (95.0-99.0); PO2(98.6) 97 mmHg (60-100); SAMPLE BLOOD; SAO2 98.4 % (95.0-100.0); THB 14.7 g/dL (11.5-17.4); pH(98.6) 7.41 (7.35-7.45)
[2018-10-10 12:33] LABS: MODALITY CANNULA; PCO2(98.6) 57 mmHg (35-45)
[2018-10-11] MEDS: DUONEB (A & A) INH SCH ×6 (03:18→23:25)
[2018-10-11 05:33] LABS: ALLEN TEST YES; BE 8.4 mmoll (-3.0-3.0); BLOOD TYPE ARTERIAL; HCO3-(ACT) 31.4 mmoll (20.0-26.0); METHB 1.2 % (0.0-1.5); O2(CT) 19.7 mL/dL (15.0-23.0); O2HB 94.4 % (95.0-99.0); PO2(98.6) 87 mmHg (60-100); SAMPLE BLOOD; SAO2 97.1 % (95.0-100.0); THB 14.8 g/dL (11.5-17.4); pH(98.6) 7.39 (7.35-7.45)
[2018-10-11 05:36] LABS: MODALITY BI PAP; PCO2(98.6) 59 mmHg (35-45)
[2018-10-11] MEDS: SOLU-MEDROL IV SCH ×3 (06:02→14:17)
[2018-10-11] MEDS ORDERED: VANCOMYCIN IV PER PHARMACY MISC SCH (07:25)
[2018-10-11] MEDS: MUCOMYST 20% INH SCH ×2 (07:43→19:25)
[2018-10-11] MEDS: SPIRIVA INH SCH (07:44)
[2018-10-11] MEDS: CENTRUM SILVER PO SCH (08:35)
[2018-10-11] MEDS: MAXIPIME 2 GM in NS 100 ML IV SCH (08:35)
[2018-10-11] MEDS: KEPPRA PO SCH ×2 (08:35→21:04)
[2018-10-11] MEDS: ZOCOR PO SCH (08:35)
[2018-10-11] MEDS: SINGULAIR PO SCH (08:35)
[2018-10-11] MEDS: LASIX PO SCH ×2 (08:35→21:04)
--- NOTE | 2018-10-11 08:39 | HEMO/ONC PROGRESS NOTE ---
DATE: 10/11/2018 SUBJECTIVE: The patient is starting to feel slightly better. The patient denies any complaints or any other pain at this time. OBJECTIVE: Vital Signs: Temperature of 97.8 degrees, heart rate 67, respiratory rate 16, blood pressure 119/79, saturating 100% on nasal cannula. General: The patient is awake, lying in bed. No acute distress noted. HEENT: Anicteric. Pupils PERRLA. Mucous membranes appear to be dry. Cardiovascular: S1, S2. Regular rate and rhythm. Chest: Bilateral breath sounds with wheezing bilaterally. Abdomen: Soft, nontender. Bowel sounds present in all 4 quadrants. Neurologic: Alert and oriented x3. No focal deficits noted. ASSESSMENT AND PLAN: 1. Metastatic papillary type kidney carcinoma and brain metastasis, status post right nephrectomy: The patient's disease is very well controlled at this time. Once the patient is discharged he will continue his Opdivo every 2 weeks. 2. Chronic obstructive pulmonary disease: Continue recommendations per primary medical team. Continue oxygen and nebulizers as ordered. 3. Supportive care: The patient is to drink his protein shakes four times a day. Plan of care was discussed with Dr. Alonso. Dictated by ROBYN Leiva for Med Alonso MD cc: ROBYN Leiva MD [facility]
--- NOTE | 2018-10-11 09:12 | Diag Imaging Result Doc PS360 ---
CHEST-2 VIEWS - 10/11/2018 INDICATION: Evaluate for consolidation COMPARISON: 10/08/2018 FINDINGS: Stable advanced COPD. Stable tiny indeterminate infiltrate or area of scarring in the lateral right midlung. No pneumothorax or pleural effusion. Heart size and pulmonary vascularity is normal. IMPRESSION: No change from prior. Electronically signed by Eugenio Herbert 10/11/2018 9:09 AM
--- NOTE | 2018-10-11 09:55 | PROGRESS NOTE ---
DATE: 10/11/2018 INTERVAL HISTORY: The patient was on nasal cannula during daytime and was put back on BiPAP during nighttime. The patient tolerated it well. He was also started on a clear liquid diet. In the morning time, ABG suggested compensated hypercarbic respiratory failure. SUBJECTIVE: He denies any chest pain. His shortness of breath he thinks is better than before. He denies any nausea, vomiting, or abdominal pain. We discussed about sputum findings. I answered all of his questions. OBJECTIVE: Vital Signs: Temperature 97.8, pulse 67, respiratory rate 16, blood pressure 120/80, saturating 100% on 2 L nasal cannula. PHYSICAL EXAMINATION: General: He does not appear in acute distress. Oral cavity is moist. Lungs: Air entry decreased bilaterally with prolonged expiration and prominent wheezes bilaterally which is sometimes audible without stethoscope. No crackles. Cardiovascular: S1, S2 normal. No murmur, rub, or gallop. He has a right-sided port. Abdomen is distended, soft , nontender. Active bowel sounds. No lower extremity edema. Neurologic: He is alert and oriented x3 and nonfocal. LABORATORY DATA: Today, lab data suggestive of pH of 7.39, pCO2 of 59. No new CBC or BMP today. Microbiology: Sputum culture growing gram-positive cocci and gram-negative rods. IMAGING: Chest x-ray is pending; however, my evaluation suggests appropriate positioning of Port- A-Cath without any organized consolidation. ASSESSMENT AND PLAN: 1. Acute exacerbation of chronic obstructive pulmonary disease due to acute bacterial bronchitis. Continue albuterol, ipratropium nebulization, intravenous steroids, intravenous cefepime. Add intravenous vancomycin. Follow up final sputum culture results. Continue to cycle BiPAP and nasal cannula as tolerated and daily ABG. He should need outpatient sleep evaluation to rule out sleep apnea. 2. CKD stage 3: Stable. 2. Seizure disorder. Continue home levetiracetam. 3. Hyperlipidemia. Continue home simvastatin. 4. Gastroesophageal reflux disease. Continue Milk of Magnesia. 5. Continue hydrocodone for chronic pain. 6. Continue MiraLAX to avoid constipation. 7. Ergocalciferol for vitamin D supplement. 8. History of chronic kidney disease, stage 3, appears stable. He -2 L since yesterday's IV Lasix dose. 9. History of metastatic renal cell carcinoma with metastasis to brain, status post right nephrectomy and status post brain radiation. Heme-Onc on board. Currently, his cancer is in remission. He is on Opdivo every 2 weeks. DISPOSITION: The patient remains in [facility]. Plan of care were discussed with him. All of his questions have been answered for close respiratory monitoring. cc: Jake Maharaj MD [facility]
[2018-10-11] MEDS ORDERED: VANCOMYCIN 1,950 MG in NS 500 ML IV ONE (10:00)
[2018-10-12] MEDS: SOLU-MEDROL IV SCH ×4 (01:15→22:18)
[2018-10-12] MEDS: DUONEB (A & A) INH SCH ×6 (03:25→23:50)
[2018-10-12 04:59] LABS: ALLEN TEST YES; BE 4.5 mmoll (-3.0-3.0); BLOOD TYPE ARTERIAL; HCO3-(ACT) 28.4 mmoll (20.0-26.0); METHB 0.5 % (0.0-1.5); O2(CT) 18.9 mL/dL (15.0-23.0); O2HB 97.1 % (95.0-99.0); PO2(98.6) 128 mmHg (60-100); SAMPLE BLOOD; SAO2 99.5 % (95.0-100.0); THB 13.7 g/dL (11.5-17.4); pH(98.6) 7.37 (7.35-7.45)
[2018-10-12 05:09] LABS: MODALITY BI PAP
[2018-10-12 05:10] LABS: PCO2(98.6) 54 mmHg (35-45)
[2018-10-12 05:16] LABS: BASO# 0.01 X1000 (0.0-0.2); BASO% 0.1 % (0.0-0.8); EOS# 0.01 X1000 (0.0-0.7); EOS% 0.1 % (0.0-10.0); HEMATOCRIT 43.7 % (42.0-52.0); HEMOGLOBIN 13.7 g/dL (14.0-18.0); IMM GRAN# 0.03 X1000 (0.0-0.04); IMM GRAN% 0.4 % (0.0-0.5); LYMPH# 0.64 X1000 (1.2-3.4); LYMPH% 8.2 % (20.5-51.1); MCHC 31.4 g/dL (33-37); MCV 79.9 FL (81-99); MONO# 0.37 X1000 (0.11-0.59); MONO% 4.8 % (1.7-9.3); MPV 9.8 FL (7.4-10.4); NEUT# 6.72 X1000 (1.4-6.5); NEUT% 86.4 % (42.2-75.2); PLT 262 X1000 (130-400); RBC 5.47 XMIL (4.7-6.1); RDW 17.4 % (11.5-14.5); WBC 7.78 X1000 (4.8-10.8)
[2018-10-12 05:40] LABS: CALCIUM 8.7 mg/dL (8.8-10.2); CREATININE 1.6 mg/dL (0.7-1.2); POTASSIUM 4.3 mmol/L (3.5-5.1)
[2018-10-12 07:13] LABS: LYMPHS 11 % (21-51); MONO 5 % (1-9); SEGS 84 % (42-75)
[2018-10-12] MEDS: SPIRIVA INH SCH (07:30)
[2018-10-12] MEDS: MUCOMYST 20% INH SCH ×2 (07:30→19:55)
[2018-10-12] MEDS: MAXIPIME 2 GM in NS 100 ML IV SCH (09:09)
[2018-10-12] MEDS: CENTRUM SILVER PO SCH (09:09)
[2018-10-12] MEDS: KEPPRA PO SCH ×2 (09:10→20:25)
[2018-10-12] MEDS: ZOCOR PO SCH (09:10)
[2018-10-12] MEDS: SINGULAIR PO SCH (09:10)
[2018-10-12] MEDS: LASIX PO SCH (09:10)
--- NOTE | 2018-10-12 11:38 | PROGRESS NOTE ---
DATE: 10/12/2018 INTERVAL HISTORY: No acute overnight events. The patient received BiPAP in the nighttime and was transitioned to nasal cannula in the morning time. His ABG suggests compensated hypercarbic respiratory failure. SUBJECTIVE: He is denying chest pain or shortness of breath. His cough is decreasing. He had a bowel movement. He has been eating okay. We discussed about his sputum findings and plan for antibiotics, breathing treatments, and steroids. I answered all of his questions. OBJECTIVE: Vital Signs: Temperature 97.7 degrees, pulse 65, blood pressure 140 /87, saturating 100% on BiPAP. Physical Examination: General: Does not appear in any acute distress. HEENT: Oral cavity is moist. Respiratory: Improved air entry bilaterally. He does have prolonged expiration but wheezes are decreasing with only end-expiratory wheezes now. No crackles. Cardiovascular: S1, S2 normal. Not tachycardic. No murmur, rub, or gallop. Chest: He has a right -sided chest port. Abdomen: Distended with gas, nontender, soft. No rebound. Neurologic: Alert and oriented x3. Lab Data: Suggestive of no leukocytosis. Stable hemoglobin and hematocrit within an acceptable range. Compensated hypercarbic respiratory failure. Normal electrolytes with elevated BUN and creatinine, suggestive of his chronic kidney disease stage 3. Microbiology: Sputum culture growing Stenotrophomonas and Staphylococci aureus. Stenotrophomonas is sensitive to levofloxacin and Bactrim. ASSESSMENT AND PLAN: 1. Acute exacerbation of chronic obstructive pulmonary disease due to acute bacterial bronchitis due to methicillin-resistant Staphylococcus aureus and Stenotrophomonas leading to acute hypoxic respiratory failure Continue albuterol/ipratropium nebulization, intravenous steroids, intravenous vancomycin. Change intravenous cefepime to intravenous levofloxacin. Continue to cycle BiPAP and nasal cannula as tolerated. He will need outpatient sleep study for evaluation of sleep apnea for what appers to be chronic hypercarbic respiratory failure. 2. History of seizure disorder. Continue home levetiracetam. 3. Chronic kidney disease stage 3, stable after nephrectomy. I will decrease Lasix dosing as his BUN is increasing. 4. Continue milk of magnesia for gastroesophageal reflux disease , hydrocodone for chronic pain, MiraLAX to avoid constipation, ergocalciferol for vitamin D supplementation. 5. History of metastatic renal cell carcinoma with metastasis to brain, status post right nephrectomy and brain radiation. Hematology/oncology on board. Currently, his cancer is in remission. Continue Opdivo every 2 weeks after discharge. 6. Disposition. The patient remains inside [facility] for close monitoring of his respiratory status. I will advance his diet to a gastrointestinal soft and have physical therapy evaluate him on October 13. Plan of care was discussed with him. Previously, I had talked with his daughter who is the surrogate decision maker. All of their questions have been answered. cc: Jake Maharaj MD [facility]
[2018-10-12] MEDS: LOVENOX SUBQ SCH (12:12)
[2018-10-12] MEDS: LEVAQUIN 750 MG/D5W 750 MG/150 ML IVPB IV SCH (12:26)
[2018-10-12] MEDS ORDERED: VANCOMYCIN 1,500 MG in NS 250 ML IV SCH (22:00)
[2018-10-13] MEDS: DUONEB (A & A) INH SCH ×6 (03:30→23:21)
[2018-10-13 04:15] LABS: ALLEN TEST YES; BLOOD TYPE ARTERIAL; METHB 1.1 % (0.0-1.5); O2(CT) 18.5 mL/dL (15.0-23.0); O2HB 96.7 % (95.0-99.0); PCO2(98.6) 48 mmHg (35-45); PO2(98.6) 144 mmHg (60-100); SAMPLE BLOOD; SAO2 99.5 % (95.0-100.0); THB 13.4 g/dL (11.5-17.4)
[2018-10-13 04:16] LABS: MODALITY BI PAP
[2018-10-13 05:11] LABS: HEMATOCRIT 41.1 % (42.0-52.0); HEMOGLOBIN 12.9 g/dL (14.0-18.0); IMM GRAN# 0.06 X1000 (0.0-0.04); IMM GRAN% 0.8 % (0.0-0.5); LYMPH# 0.79 X1000 (1.2-3.4); LYMPH% 10.4 % (20.5-51.1); MCH 24.9 PG (27-31); MCHC 31.4 g/dL (33-37); MCV 79.3 FL (81-99); MONO# 0.57 X1000 (0.11-0.59); MONO% 7.5 % (1.7-9.3); MPV 9.6 FL (7.4-10.4); NEUT# 6.21 X1000 (1.4-6.5); NEUT% 81.3 % (42.2-75.2); PLT 256 X1000 (130-400); RBC 5.18 XMIL (4.7-6.1); RDW 17.1 % (11.5-14.5); WBC 7.63 X1000 (4.8-10.8)
[2018-10-13 05:53] LABS: CALCIUM 8.9 mg/dL (8.8-10.2); CREATININE 1.8 mg/dL (0.7-1.2); POTASSIUM 4.5 mmol/L (3.5-5.1)
[2018-10-13] MEDS: MUCOMYST 20% INH SCH ×2 (07:41→19:06)
[2018-10-13] MEDS: SPIRIVA INH SCH (07:41)
[2018-10-13] MEDS: LEVAQUIN 750 MG/D5W 750 MG/150 ML IVPB IV SCH (08:50)
[2018-10-13] MEDS: CENTRUM SILVER PO SCH (08:51)
[2018-10-13] MEDS: ZOCOR PO SCH (08:51)
[2018-10-13] MEDS: LASIX PO SCH (08:51)
[2018-10-13] MEDS: SOLU-MEDROL IV SCH ×2 (08:51→16:26)
[2018-10-13] MEDS: SINGULAIR PO SCH (08:51)
[2018-10-13] MEDS: LOVENOX SUBQ SCH (08:51)
[2018-10-13] MEDS: KEPPRA PO SCH ×2 (08:51→20:19)
[2018-10-13] MEDS ORDERED: ZYVOX 600 MG/D5W 600 MG/300 ML IVPB IV SCH (10:00)
--- NOTE | 2018-10-13 12:40 | INFECTIOUS DISEASE CONSULT REP ---
DATE: 10/13/2018 CONCLUSION: The patient is extremely hard of hearing, and it was difficult for me to get a history, and most of the information I did get was from information in the computer. The patient is admitted to the hospital with increasing dyspnea in the past 2 weeks. He is coughing, but is not bringing up much in the way of sputum. He has grown methicillin-resistant Staphylococcus aureus and Stenotrophomonas from his sputum. On chest x-ray, there appeared to be a possible right lung pneumonia. However, on CT scan, no infiltrate was seen. Since the CT is a more accurate way of looking at what is going on in the lungs than a plain chest x-ray, I suspect the patient has bronchitis, but not pneumonia. RECOMMENDATIONS: I agree with treating the patient with Zyvox and Levaquin. I have changed both of the antibiotics to p.o. since they are both very well absorbed and give good blood levels comparable to what the blood level would be if they were both given intravenously. I have decreased the dose of the of Levaquin to 500 mg daily in view of the fact that the patient's creatinine is elevated at 1.8 and the GFR is down to 44. Also, the patient only has 1 kidney left. The right kidney was surgically removed. REVIEW OF SYSTEMS: Unable to obtain from patient. DISCUSSION: The patient came in with a chief complaint of being dyspneic for the past 2 weeks. He was not coughing up any sputum, and he has not had fever or chills. His laboratory studies show a CBC with a white count of 7630, hemoglobin 12.9, and platelet count of 256,000. Blood gases show a pH of 7.4, PO2 of 144, and a pCO2 of 48. Creatinine is 1.8, GFR is 44. Sputum grew methicillin-resistant Staphylococcus aureus and Stenotrophomonas as mentioned above. Chest x-ray showed possible right lung infiltrate and scarring. CT scan of the chest showed emphysematous changes, fibrosis, bronchial wall thickening, but no actual infiltrate. The patient is very hard of hearing, and I was unable to obtain a past medical history and review of systems. The information I do have is from the reports that are in the computer. PAST MEDICAL HISTORY: The patient has metastatic renal cell carcinoma with metastases in the brain. He is receiving chemotherapy for this. The patient also has chronic kidney disease, hypertension, hyperlipidemia, COPD, and a history of seizures. PAST SURGICAL HISTORY: Positive for right nephrectomy, prostatectomy, and 2 craniotomies. SOCIAL HISTORY: The patient lives with his family. He is a . He smoked cigarettes for a very long period of time. He does not drink alcoholic beverages or use illicit drugs. FAMILY HISTORY: Positive for Alzheimer disease, diabetes mellitus, cancer. ALLERGIES: The patient has no known drug allergies. HOME MEDICATIONS: Include DuoNeb and albuterol inhaler, azithromycin, Symbicort , vitamin D, Lasix, Hycodan, Keppra, milk of magnesia, Singulair, Centrum Silver, MiraLAX, potassium, prednisone, simvastatin, and Spiriva. PHYSICAL EXAMINATION: Vital Signs: Temperature is 97.7 degrees, pulse 75, respirations 18, blood pressure is 118/73. The patient weighs 178 pounds. General: This is an ill- appearing elderly male. He is in no acute distress at this time. HEENT: He is very hard of hearing. He does not have any white patches on his tongue. He can see near objects. He talks with a hoarse voice. Neck: No stiffness. Lungs: There were bilateral wheezes both on inspiration and expiration. Thorax: Patient has an increased AP diameter of the chest. Cardiovascular: Heart rate is regular. Abdomen: Soft and not tender. Neurologic: The patient is awake. He can move his extremities. There is no tremor. His sensory exam was normal. Thank you for the consultation. cc: Dale Barbosa MD [facility]
--- NOTE | 2018-10-13 13:56 | PROGRESS NOTE ---
DATE: 10/13/2018 SUBJECTIVE: This patient seems to be a little bit better. He is still coughing, but the frequency has decreased. He has been tolerating p.o. Sputum culture showed a Stenotrophomonas maltophilia and MRSA. Infectious Disease department evaluated this patient and they will continue with levofloxacin and Zyvox, which has been changed today. We will continue with the same management for now. I think this patient is getting better. OBJECTIVE: Vital Signs: Temperature 98, pulse 77, respiratory rate 17, blood pressure 129/78, oxygen saturation 98 on 2 L of nasal cannula. HEENT: Head normocephalic. No trauma. PERRLA. Neck: Supple. No JVD. Central trachea. Chest: Decreased breath sounds globally with prolonged expiratory phase and faint, end-expiratory wheezing. No crackles. He has a right Port-A-Cath with no signs of infection. Cardiovascular: Regular rate and rhythm. Abdomen: Soft. Nontender, nondistended. Neurological: This patient is hard of hearing. He is alert and oriented x3. He is following commands. LABORATORY: WBC 7.6, hemoglobin 12.9, hematocrit 41.1, platelets 256. Sodium 139, potassium 4.5, chloride 99, bicarbonate 30, BUN 45, creatinine 0.8, glucose 146, calcium 8.9. ASSESSMENT AND PLAN: 1. Chronic obstructive pulmonary disease exacerbation due to pneumonia with MRSA and Stenotrophomonas sputum culture. This patient has been evaluated by the Infectious Disease department. They agree with the treatment with levofloxacin and Zyvox. We will avoid nephrotoxic medications. Breathing treatment, oxygen supplementation and pulmonary toilet. 2. History of seizure disorder. Continue with Keppra. 3. Chronic kidney disease stage 3, stable after nephrectomy. 4. Chronic gastroesophageal reflux disease. Continue with same management. 5. Chronic pain. He seems to be stable right now. Continue with home medications. 6. Constipation. Continue with MiraLAX. 7. History of metastatic renal cell carcinoma with metastasis to the brain, status post right nephrectomy and brain radiation. As per the family, this cancer is in remission. 8. This patient seems to be doing better. I believe we can transfer this patient to the floor. Will continue with treatment. cc: Yusuf Helms MD
[2018-10-13] MEDS: ZYVOX PO SCH ×2 (14:40→20:19)
[2018-10-14] MEDS: SOLU-MEDROL IV SCH ×2 (01:17→08:35)
[2018-10-14] MEDS: DUONEB (A & A) INH SCH ×3 (02:58→11:10)
[2018-10-14 05:12] LABS: ALLEN TEST YES; BE 4.5 mmoll (-3.0-3.0); BLOOD TYPE ARTERIAL; HCO3-(ACT) 28.4 mmoll (20.0-26.0); METHB 0.4 % (0.0-1.5); O2HB 96.4 % (95.0-99.0); PO2(98.6) 117 mmHg (60-100); SAMPLE BLOOD; SAO2 99.4 % (95.0-100.0); THB 12.4 g/dL (11.5-17.4); pH(98.6) 7.38 (7.35-7.45)
[2018-10-14 05:13] LABS: MODALITY CANNULA
[2018-10-14 05:18] LABS: PCO2(98.6) 52 mmHg (35-45)
--- NOTE | 2018-10-14 06:35 | Diag Imaging Result Doc PS360 ---
EXAM: CHEST-PORTABLE HISTORY: Respiratory failure TECHNIQUE: Portable chest single view COMPARISON: 10/11/2018 FINDINGS: The lungs are well expanded. The heart is not enlarged. No change in the right-sided portacatheter. The vessels are not distended. There are no infiltrates. No effusion identified. IMPRESSION: Stable chest. Electronically signed by Dominik Solo 10/14/2018 6:33 AM
[2018-10-14 07:35] LABS: HEMATOCRIT 43.2 % (42.0-52.0); HEMOGLOBIN 13.6 g/dL (14.0-18.0); IMM GRAN# 0.05 X1000 (0.0-0.04); IMM GRAN% 0.6 % (0.0-0.5); LYMPH# 0.68 X1000 (1.2-3.4); LYMPH% 8.4 % (20.5-51.1); MCH 24.7 PG (27-31); MCHC 31.5 g/dL (33-37); MCV 78.4 FL (81-99); MPV 9.5 FL (7.4-10.4); NEUT# 6.93 X1000 (1.4-6.5); PLT 263 X1000 (130-400); RBC 5.51 XMIL (4.7-6.1); RDW 16.9 % (11.5-14.5); WBC 8.06 X1000 (4.8-10.8)
[2018-10-14] MEDS: SPIRIVA INH SCH (07:40)
[2018-10-14] MEDS: MUCOMYST 20% INH SCH (07:40)
[2018-10-14 07:47] LABS: LYMPHS 14 % (21-51); MONO 2 % (1-9); SEGS 84 % (42-75)
[2018-10-14 07:52] LABS: ALB/GLOB RATIO 1.5; ALBUMIN 3.9 g/dL (3.5-5.0); CALCIUM 8.9 mg/dL (8.8-10.2); CREATININE 1.8 mg/dL (0.7-1.2); POTASSIUM 4.7 mmol/L (3.5-5.1); TOTAL BILIRUBIN 0.31 mg/dL (0.20-1.00); TOTAL PROTEIN 6.5 g/dL (6.3-8.3)
[2018-10-14] MEDS: ZOCOR PO SCH (08:36)
[2018-10-14] MEDS: KEPPRA PO SCH (08:36)
[2018-10-14] MEDS: CENTRUM SILVER PO SCH (08:36)
[2018-10-14] MEDS: ZYVOX PO SCH (08:36)
[2018-10-14] MEDS: SINGULAIR PO SCH (08:36)
[2018-10-14] MEDS: LASIX PO SCH (08:37)
[2018-10-14] MEDS: LOVENOX SUBQ SCH (08:37)
[2018-10-14] MEDS ORDERED: LEVAQUIN PO SCH (09:00)
[2018-10-14 12:02] VITALS: BP 155/103
--- NOTE | 2018-10-14 23:50 | INFECTIOUS DISEASE PROGRESS NO ---
DATE: 10/14/2018 PRESENT ILLNESS: The patient has a severe bronchitis. MEDICATIONS: The patient is receiving a combination of Zyvox and Levaquin. He also is on steroids. PHYSICAL EXAMINATION: Vital Signs: Temperature is 97.6 degrees, pulse 81, respirations 18, blood pressure 155/103. General: This is a fairly healthy-appearing, elderly male. He is in no acute distress. He has not had fever and he has not been coughing much. Head/eyes/ears/nose/throat: There was no drainage from the nose or ears. He does talk in a hoarse voice which is something he has done for a long time. Neck: No stiffness. Lungs: Clear to auscultation. Cardiovascular: Regular heart rate. Abdomen: Soft and nontender. Thorax: The patient has an increased AP diameter of his chest. He has a Port-A-Cath on the right side. The site is not swollen or draining. Abdomen: Soft and nontender. Neurologic: Patient is alert. He can ambulate. There is no tremor. Integument: No rash noted. LAB AND X-RAY: Chest x-ray shows clear lung conner. Liver function studies are normal. CBC shows a white count of 8060, hemoglobin 13.6, and platelet count 263,000. Blood gases show a pH of 7.38, a pO2 of 117 and a pCO2 of 52. The creatinine is 1.8. GFR is 44. ASSESSMENT AND PLAN: Dr. Hidalgo and I discussed with the patient his present illness. We all feel that the patient is doing well and can be sent home. I am going to be sending him home on Levaquin 500 mg daily and doxycycline 100 mg every 12 hours for a total of 10 more days. I am going to request that the patient stop by my office in 10 days, but if he is feeling okay, he can cancel the appointment. COMORBIDITIES: He has metastatic renal cell carcinoma. He has chronic kidney disease. He also has COPD and he has a history of seizures. cc: Dale Barbosa MD
--- NOTE | 2018-10-16 00:57 | DISCHARGE SUMMARY ---
ADMISSION DATE: 10/08/2018 DISCHARGE DATE: 10/14/2018 DISCHARGE DIAGNOSES: 1. Chronic obstructive pulmonary disease exacerbation. 2. Pneumonia due to MRSA and Stenotrophomonas. 3. History of seizure disorder. 4. Chronic kidney disease, stage 3. 5. Gastroesophageal reflux disease. 6. Chronic pain. 7. Constipation. 8. History of metastatic renal cell carcinoma, with metastasis to the brain, status post right nephrectomy and brain radiation, apparently in remission. HOSPITAL COURSE: A 78-year-old male with a past medical history of COPD, CKD, hypertension, hyperlipidemia, seizure, and metastatic renal cell carcinoma with brain metastasis, apparently in remission. Admitted on 10/08/2018. He came in to the emergency department complaining of respiratory symptoms for several days. He reports that he has had worsening shortness of breath, with orthopnea, as well as increased oxygen use, and nebulizer treatment. The patient reported that at home, he does use DuoNeb treatments normally 4 times a day, and does use supplemental oxygen as needed. He has been increasing the use of both significantly. He reported a productive cough, with thick white sputum. He was seen in the emergency department the day before admission, and diagnosed with bronchitis. He received a prescription for treatment with steroids, azithromycin, and cough syrup, but after returning home, his symptoms did improve, abut the night just prior to arrival, his symptoms began to worsen again. He denied headache, dizziness, chest pain, abdominal pain, nausea, vomiting, diarrhea. He states that sometimes he is constipated. He denies hematochezia or melena. His abdomen appeared to be slightly distended, and he states that it is a little bit slightly more swollen than usual. In the emergency department, the patient's oxygen saturation was noted to be in the 70s. He was tachycardic, respirations 20, and blood pressure 162/124. He was placed on oxygen, and the oxygen saturation improved to the 90s. He was hypercapnic. CT of the chest showed emphysema, with fibrosis and bronchial wall thickening. There were also some small mediastinal nodes noted. he was admitted, and will continue treatment with antibiotics. He was feeling better on a daily basis. His respiration was improving, as well as his pneumonia, the patient was actually getting through his IV, but it has been changed to p.o. Today, this patient was feeling much better. I discussed the case with Infectious Disease Department. We decided to discharge this patient with levofloxacin and doxycycline. He will be monitored by his primary care doctor. He will need to go back to his hand umbrella tipper/oncologist, Dr. Alonso. He will be followed also by Dr. Barbosa in 10 days. He will need to call for an appointment. At the moment of discharge, he was not complaining of shortness of breath. He was ambulating and tolerating p.o. OBJECTIVE: Vital Signs: Temperature 97.6 degrees, pulse 81, respiratory rate 18, blood pressure 155/103. Oxygen saturation 100% on nasal cannula. HEENT: Head normocephalic. No trauma. PERRLA. Neck: Supple. No JVD. No masses. Central trachea. Chest: Decreased breath sounds. prolonged the expiratory phase. Some crepitus at the bases. He has a right Port-A-Cath, with no signs of infection. Cardiovascular: RRR. Abdomen: Soft, nontender, nondistended. No hepatosplenomegaly. Neurological: This patient is hard of hearing. He is alert and oriented x3. He is following commands. LABORATORY: WBC 8, hemoglobin 30.6, hematocrit 42.3, platelets 263,000. Sodium 139, potassium 4.7, chloride 96, bicarbonate 30, BUN 47, creatinine 1.8, glucose 108. Calcium 8.9. Albumin 3.9. DISCHARGE MEDICATIONS: 1. Spiriva 1 dose inhaler daily. 2. Simvastatin 40 mg p.o. daily. 3. Potassium chloride 10 mEq p.o. daily. 4. MiraLAX 17 g p.o. daily as needed. 5. Centrum Silver 1 tablet p.o. daily. 6. Singulair 10 mg p.o. daily. 7. Milk of magnesium 30 mL p.o. as needed. 8. Keppra 750 mg p.o. b.i.d. 9. Hycodan syrup 5 mL p.o. q.6 to 8 hours as needed. 10. Vitamin D2 5000 units p.o. q.Wednesday. 11. Symbicort 160/4.5 mcg inhaler b.i.d. 12. DuoNeb 3 mL inhaled q.6 hours as needed. 13. Acetaminophen 500 mg p.o. q.4 hours as needed for fever. 14. Furosemide 20 mg p.o. b.i.d. 15. Medrol Dosepak as directed. 16. Levofloxacin 500 mg p.o. daily. 17. Doxycycline 100 mg p.o. q.12 hours. TIME SPENT DISCHARGING PATIENT: 35 minutes. cc: Yuusf Helms MD MTDD
== END 2018-10-14 17:14 | disposition home health service (06) | DRG 202 ==
LOC: SUPCPDRO → ED 22:38 → 3N 10-08 06:39 → SUATTDRO 10-08 06:39 → 3N 10-08 07:16 → 3S 10-09 11:11 → 3N 10-13 17:56
PROVIDERS: ATTEND Internal Medicine
CPT/HCPCS: 71010; 71020; 71045; 71046; 71250; 80048; 80053; 81001; 82550; 82553; 82805; 83605; 83880; 84484; 85025; 87040; 87070; 87077; 87186; 87205; 93005; 93010; 94640; 94660; 94761; 94799; 96365; 96367; 96372; 96375; 97116; 97162; 97530; 99283; 99285; A9270; J0456; J0692; J0696; J1650; J1940; J1956; J2920; J2930; J3370; J7040; J7050